=== PATIENT | male | born 1970 | race Caucasian/White ===

== ENCOUNTER 2020-05-18 13:12 | Inpatient (IN) ==
[2020-05-18 13:24] VITALS: BMI 42.3
--- NOTE | 2020-05-18 14:15 | DR.URIAD ---
HPI Time Seen Time Seen by Provider: 05/18/20 13:20 Complaint Chief Complaint Doctors Comments: CC General malaise HPI Pt with several days of worsening body aches general malaise has an ulcer in the pad of his right big toe wonders if it is infected PMH PMH Past Medical History: Diabetes and Hypertension Past Surgical History: Yes Surgical History: Tonsillectomy Family History Family Medical History: Diabetes Mellitus and Cancer Social History Do you use any recreational Drugs:: No ROS Review of Systems Constitutional: Diaphoresis, Fever, Malaise, Weakness and Fatigue Eyes: No Symptoms Reported ENTM: No Symptoms Reported Respiratoy: No Symptoms Reported Cardiovascular: No Symptoms Reported Gastrointestinal/Abdominal: No Symptoms Reported Genitourinary: No Symptoms Reported Neurological: No Symptoms Reported Musculoskeletal: See HPI Integumentary: See HPI Hematologic/Lymphatic: No Symptoms Reported Endocrine: No Symptoms Reported Psychiatric: No Symptoms Reported All Other Systems: Reviewed and Negative PE Vital Signs Vitals: Temperature 99.6 F Pulse Rate 89 Respiratory Rate 20 Blood Pressure [Left Arm] 105/58 Blood Pressure 115/63 O2 Sat by Pulse Oximetry 93 General Limitations: No Limitations General Appearance: Alert (pt appears acutely ill ) and Lethargic Head Head Exam: Normal Inspection, Atraumatic and Normocephalic Eyes Eye exam: Normal Appearance, PERRL and EOMI; negative Scleral Icterus and Conjunctival Injection ENT ENT Exam: Normal Exam, Normal Oropharynx and Mucous Membranes Moist Mouth Exam: Normal Inspection; negative Drooling, Lip Swelling and Tongue Elevation Throat Exam: Normal Inspection; negative Tonsillar Erythema, Tonsillomegaly, Tonsillar Exudate, R Peritonsillar Mass and L Peritonsillar Mass Neck Neck Exam: Normal Inspection, Full ROM and Trachea Midline; negative Tenderness, Meningismus and Lymphadenopathy Chest Chest Inspection: Normal Inspection and Symmetric Chest Wall Rise; negative Tenderness Respiratory Respiratory Exam: Normal Lung Sounds Bilat; negative Accessory Muscle Use and Chest Wall Tenderness Respiratory Exam: Bilateral: Clear to Auscultation Cardiovascular Cardiovascular Exam: Regular Rate, Normal Rhythm, Systolic Murmur and Diastolic Murmur; negative Normal Heart Sounds Abdominal Exam Abdominal Exam: Normal Inspection and Normal Bowel Sounds; negative Soft, Distention, Tenderness and Guarding Extremeties Extremities Exam: Normal Inspection and Full ROM; negative Tenderness Back Back Exam: Normal Inspection and Full ROM; negative Tenderness Neurologic Neurological Exam: Alert, Oriented X3 and Normal Gait Psychiatric Psychiatric Exam: Normal Affect and Normal Mood Skin Skin Exam: Other (there is an ulcer in the pad of the right big toe with increasec caloric) MDM Differential Diagnosis Differential Diagnosis: Influenza A, Influenza B, Pneumonia (diabetic foot ulce r, Sepsis) and URI COURSE Consultation Consultation Comments: Dr Zepeda admitted 1705 ROR Labs Reviewed Laboratory Results Reviewed?: Yes Result Diagrams: 05/18/20 14:26 05/18/20 14:26 Laboratory: WBC 13.8 X10^3/uL (3.6-10.0) H 05/18/20 14:26 RBC 5.22 X10^6/uL (4.7-6.0) 05/18/20 14:26 Hgb 13.9 g/dL (13.5-18.0) 05/18/20 14:26 Hct 42.7 % (42.0-54.0) 05/18/20 14:26 MCV 82.0 fL (80.0-100.0) 05/18/20 14:26 MCH 26.7 pg (27.0-34.0) L 05/18/20 14:26 MCHC 32.6 g/dL (33.0-35.0) L 05/18/20 14:26 RDW 17.9 % (11.6-16.5) H 05/18/20 14:26 Plt Count 137 X10^3/uL (150.0-450.0) L 05/18/20 14:26 MPV 9.1 fL (7.4-11.0) 05/18/20 14:26 Neut % (Auto) 86.8 % (42.0-75.0) H 05/18/20 14:26 Lymph % (Auto) 3.4 % (21.0-51.0) L 05/18/20 14:26 [place] % (Auto) 8.8 % (0.0-13.0) 05/18/20 14:26 Eos % (Auto) 0.8 % (0.9-2.9) L 05/18/20 14:26 Baso % (Auto) 0.2 % (0.2-1.0) 05/18/20 14:26 Neut # (Auto) 12.0 x10^3/uL (2.2-4.8) H 05/18/20 14:26 Lymph # (Auto) 0.5 X10^3/uL (1.3-2.9) L 05/18/20 14:26 [place] # (Auto) 1.2 x10^3/uL (0.3-0.8) H 05/18/20 14:26 Eos # (Auto) 0.1 x10^3/uL (0.0-0.2) 05/18/20 14:26 Baso # (Auto) 0.0 X10^3/uL (0.0-0.1) 05/18/20 14:26 Absolute Nucleated RBC 0.0 /100WBC 05/18/20 14:26 PT 26.4 SECONDS (11.8-14.3) 05/18/20 14:26 INR Target Range - 05/18/20 14:26 INR 2.52 (0.8-1.3) H 05/18/20 14:26 APTT 33.0 SECONDS (22.9-36.5) 05/18/20 14:26 PTT Comment - 05/18/20 14:26 Sodium 138 mmol/L (136-145) 05/18/20 14:26 Corrected Sodium 142 mmol/L (136-145) 05/18/20 14:26 Potassium 4.7 mmol/L (3.5-5.1) 05/18/20 14:26 Chloride 102 mmol/L (98-107) 05/18/20 14:26 Carbon Dioxide 30.9 mmol/L (21-32) 05/18/20 14:26 BUN 26 mg/dL (7-18) H 05/18/20 14:26 Creatinine 0.89 mg/dL (0.70-1.30) 05/18/20 14:26 Est GFR (MDRD) Af Amer > 60 (>60) 05/18/20 14:26 Est GFR (MDRD) Non-Af > 60 (>60) 05/18/20 14:26 Glucose 257 mg/dL (65-99) H 05/18/20 14:26 Lactic Acid 1.9 mmol/L (0.4-2.0) 05/18/20 14:33 Calcium 9.5 mg/dL (8.5-10.1) 05/18/20 14:26 Corrected Calcium TNP 05/18/20 14:26 Total Bilirubin 0.60 mg/dL (0.2-1.0) 05/18/20 14:26 AST 39 Units/L (15-37) H 05/18/20 14:26 ALT 31 Units/L (12-78) 05/18/20 14:26 Alkaline Phosphatase 98 Units/L (46-116) 05/18/20 14:26 Total Protein 8.4 g/dL (6.4-8.2) H 05/18/20 14:26 Albumin 3.6 g/dL (3.4-5.0) 05/18/20 14:26 Globulin 4.8 g/dL (2.5-4.5) H 05/18/20 14:26 Albumin/Globulin Ratio 0.8 Ratio (1.1-2.1) L 05/18/20 14:26 Specimen Type Random urine 05/18/20 14:53 Urine Color Yellow (YELLOW) 05/18/20 14:53 Urine Appearance Clear (CLEAR) 05/18/20 14:53 Urine pH 5.0 (5.0 - 8.0) 05/18/20 14:53 Ur Specific [place] 1.010 (1.000-1.030) 05/18/20 14:53 Urine Protein Negative (NEGATIVE) 05/18/20 14:53 Urine Glucose (UA) 4+ (NEGATIVE) 05/18/20 14:53 Urine Ketones Negative (NEGATIVE) 05/18/20 14:53 Urine Occult Blood Negative (NEGATIVE) 05/18/20 14:53 Urine Nitrite Negative (NEGATIVE) 05/18/20 14:53 Urine Bilirubin Negative (NEGATIVE) 05/18/20 14:53 Urine Urobilinogen Normal (NORMAL) 05/18/20 14:53 Ur Leukocyte Esterase Negative (NEGATIVE) 05/18/20 14:53 Influenza Type A (PCR) Negative (NEGATIVE) 05/18/20 14:17 Influenza Type B (PCR) Negative (NEGATIVE) 05/18/20 14:17 SARS-CoV-2 (PCR) Negative (NEGATIVE) 05/18/20 14:17 SARS-CoV-2 IgG Ab Cancelled 05/18/20 14:26 SARS-CoV-2 IgG (LYNN) 1 Cancelled 05/18/20 14:26 S. pyogenes (TEM-PCR) Not detected (NOT DETECT) 05/18/20 14:17 XRAY X-ray Results: of foot no osteo chest xr wnl Opioid Opioid Risk Tool Age (Wilian box if 16-45): No History of Preadolescent Sexual Abuse: No Total: 0 Total Score Risk Category: Low Risk Copyright: [facility] predicting aberrant behaviors Diagnosis Discharge Problem: Cellulitis in diabetic foot, Leukocytosis Diabetic foot ulcer Qualifiers: Diabetic foot ulcer location: toe Diabetes mellitus type: type 2 Laterality: right Non-pressure ulcer stage: with fat layer exposed Qualified Code(s): E11.621 - Type 2 diabetes mellitus with foot ulcer
--- NOTE | 2020-05-18 14:39 | RAD ---
HISTORYUlcer 1st toeSTUDYRight foot three viewsCOMPARISONNoneFINDINGSThere is marked soft tissue swelling of the 1st toe. A lucency is noted in the soft tissues adjacent to the distal phalanx. No fracture or bone destruction or foreign body is seen. Soft tissue swelling is nonspecific. There is hyperextension of the toes at the MTP joints. There is a conical tapered erosive deformity of the distal 5th metatarsal.IMPRESSIONSoft tissue swelling 1st toe with a air or gas in the soft tissues consistent with ulcer/infection. No osteomyelitis seen. Nonacute deformity distal 5th metatarsal may be related to previous surgery or chronic inflammatory erosion.Electronically signed by: JOHANNA AMADOR (May 18, 2020 14:37:09)
[2020-05-18 14:47] LABS: BASOPHILS % (AUTO) 0.2 % (0.2-1.0); EOSINOPHILS # (AUTO) 0.1 x10^3/uL (0.0-0.2); EOSINOPHILS % (AUTO) 0.8 % (0.9-2.9); HEMATOCRIT 42.7 % (42.0-54.0); HEMOGLOBIN 13.9 g/dL (13.5-18.0); LYMPHOCYTES # (AUTO) 0.5 X10^3/uL (1.3-2.9); LYMPHOCYTES % (AUTO) 3.4 % (21.0-51.0); MEAN CORPUSCULAR HEMOGLOBIN 26.7 pg (27.0-34.0); MEAN CORPUSCULAR HGB CONC 32.6 g/dL (33.0-35.0); MEAN PLATELET VOLUME 9.1 fL (7.4-11.0); MONOCYTES # (AUTO) 1.2 x10^3/uL (0.3-0.8); MONOCYTES % (AUTO) 8.8 % (0.0-13.0); NEUTROPHILS % (AUTO) 86.8 % (42.0-75.0); PLATELET COUNT 137 X10^3/uL (150.0-450.0); RED BLOOD COUNT 5.22 X10^6/uL (4.7-6.0); RED CELL DISTRIBUTION WIDTH 17.9 % (11.6-16.5); WHITE BLOOD COUNT 13.8 X10^3/uL (3.6-10.0)
[2020-05-18 14:59] LABS: ALANINE AMINOTRANSFERASE 31 Units/L (12-78); ALBUMIN 3.6 g/dL (3.4-5.0); ALKALINE PHOSPHATASE 98 Units/L (46-116); ASPARTATE AMINO TRANSFERASE 39 Units/L (15-37); BLOOD UREA NITROGEN 26 mg/dL (7-18); CALCIUM 9.5 mg/dL (8.5-10.1); CARBON DIOXIDE 30.9 mmol/L (21-32); CHLORIDE 102 mmol/L (98-107); COR NA(FOR HYPERGLY) 142 mmol/L (136-145); CREATININE 0.89 mg/dL (0.70-1.30); SODIUM 138 mmol/L (136-145); TOTAL PROTEIN 8.4 g/dL (6.4-8.2); eGFR NON BLACK RACES > 60 (>60)
[2020-05-18 15:15] LABS: BILIRUBIN,URINE NEGATIVE (NEGATIVE); BLOOD/HEMOGLOBIN,URINE NEGATIVE (NEGATIVE); GLUCOSE, URINE 4+ (NEGATIVE); KETONES,URINE NEGATIVE (NEGATIVE); LEUKOCYTE ESTERASE ,URINE NEGATIVE (NEGATIVE); NITRITES,URINE NEGATIVE (NEGATIVE); PROTEIN,URINE NEGATIVE (NEGATIVE); UROBILINOGEN,URINE NORMAL (NORMAL)
[2020-05-18 15:20] LABS: APPEARANCE,URINE CLEAR (CLEAR); COLOR,URINE YELLOW (YELLOW)
[2020-05-18] MEDS ORDERED: VANCOMYCIN IV *PREMIX 1 G/200 ML BAG 1 G/200 ML PIGGYBACK IV ONE (15:32)
[2020-05-18 15:35] LABS: STREP A BY PCR NOT DETECTED (NOT DETECT)
--- NOTE | 2020-05-18 15:35 | RAD ---
Chest AP portableIndication: Chills and body aches. SepsisFINDINGSThere is no pneumothorax or effusion. There is no dense consolidation. Heart size is enlarged with sternotomy change noted.IMPRESSIONCardiomegaly without other acute chest processElectronically signed by: VIVEK SCHAFER (May 18, 2020 15:32:43)
[2020-05-18] MEDS ORDERED: MERREM VIAL IVP ONE (15:37)
[2020-05-18 16:04] LABS: COVID 19 PCR NEGATIVE (NEGATIVE)
[2020-05-18] MEDS ORDERED: VANCOMYCIN HCL ONE (16:05)
[2020-05-18] MEDS ORDERED: NS 250 ML IV 250 ML IV ONE ×2 (16:05→18:12)
[2020-05-18] MEDS ORDERED: HumuLIN R SUBCUT PRN (17:19)
[2020-05-18] MEDS ORDERED: MERREM VIAL ONE (17:38)
[2020-05-18] MEDS ORDERED: NS 50 ML IV + SPIKE MINIBAG* 50 ML IV ONE (17:38)
[2020-05-18] MEDS ORDERED: NORCO 7.5/325 MG TAB PO PRN (18:07)
[2020-05-18] MEDS ORDERED: NORCO 7.5/325 MG TAB ONE (18:11)
[2020-05-18] MEDS ORDERED: NS 250 ML IV 250 ML IV SCH (18:30)
[2020-05-18] MEDS ORDERED: [UNRECOGNIZED DRUG - OTHER] PO PRN (19:07)
[2020-05-18] MEDS ORDERED: CATAPRES-TTS-2 TD SCH (19:07)
[2020-05-18] MEDS ORDERED: GLUCOPHAGE PO SCH (20:00)
[2020-05-18] MEDS ORDERED: SNACK - Diabetic Appropriate PO SCH (20:00)
[2020-05-18] MEDS: SNACK - Diabetic Appropriate PO SCH (20:50)
[2020-05-18] MEDS: JANUVIA PO SCH (20:50)
[2020-05-18] MEDS: NEURONTIN CAP 300 MG PO SCH (21:05)
[2020-05-18] MEDS ORDERED: MERREM VIAL 500 MG in NS 50 ML IV + SPIKE MINIBAG* 50 ML IV SCH (22:00)
[2020-05-18] MEDS ORDERED: MERREM VIAL IVP SCH (22:00)
[2020-05-19] MEDS: NEURONTIN CAP 300 MG PO SCH (05:25)
[2020-05-19 05:43] LABS: BASOPHILS % (AUTO) 0.4 % (0.2-1.0); EOSINOPHILS # (AUTO) 0.1 x10^3/uL (0.0-0.2); EOSINOPHILS % (AUTO) 0.6 % (0.9-2.9); HEMATOCRIT 39.1 % (42.0-54.0); HEMOGLOBIN 12.9 g/dL (13.5-18.0); LYMPHOCYTES # (AUTO) 0.9 X10^3/uL (1.3-2.9); LYMPHOCYTES % (AUTO) 9.5 % (21.0-51.0); MEAN CORPUSCULAR HEMOGLOBIN 26.9 pg (27.0-34.0); MEAN CORPUSCULAR HGB CONC 32.9 g/dL (33.0-35.0); MEAN CORPUSCULAR VOLUME 81.8 fL (80.0-100.0); MEAN PLATELET VOLUME 9.6 fL (7.4-11.0); MONOCYTES # (AUTO) 0.9 x10^3/uL (0.3-0.8); MONOCYTES % (AUTO) 10.4 % (0.0-13.0); NEUTROPHILS # (AUTO) 7.1 x10^3/uL (2.2-4.8); NEUTROPHILS % (AUTO) 79.1 % (42.0-75.0); PLATELET COUNT 129 X10^3/uL (150.0-450.0); RED BLOOD COUNT 4.78 X10^6/uL (4.7-6.0); RED CELL DISTRIBUTION WIDTH 17.8 % (11.6-16.5)
[2020-05-19 05:58] LABS: ALANINE AMINOTRANSFERASE 25 Units/L (12-78); ALBUMIN 3.1 g/dL (3.4-5.0); ALKALINE PHOSPHATASE 84 Units/L (46-116); ASPARTATE AMINO TRANSFERASE 26 Units/L (15-37); BLOOD UREA NITROGEN 21 mg/dL (7-18); CALCIUM 8.9 mg/dL (8.5-10.1); CARBON DIOXIDE 26.8 mmol/L (21-32); CHLORIDE 104 mmol/L (98-107); COR CA(FOR HYPOALB) 9.6 mg/dL (8.5-10.1); CREATININE 0.67 mg/dL (0.70-1.30); SODIUM 139 mmol/L (136-145); TOTAL PROTEIN 7.4 g/dL (6.4-8.2); eGFR NON BLACK RACES > 60 (>60)
[2020-05-19] MEDS: JANUVIA PO SCH ×2 (06:00→16:17)
[2020-05-19] MEDS ORDERED: MICRO K EXTEN CAP 10 MEQ PO SCH (09:00)
[2020-05-19] MEDS ORDERED: LASIX PO SCH (09:00)
[2020-05-19] MEDS ORDERED: VITAMIN C PO SCH (09:00)
[2020-05-19] MEDS ORDERED: MAXZIDE 75/50 MG PO SCH (09:00)
[2020-05-19] MEDS ORDERED: ZOCOR TAB 20 MG PO SCH (09:00)
[2020-05-19] MEDS ORDERED: AMARYL TAB 4 MG PO SCH (09:00)
[2020-05-19] MEDS ORDERED: REQUIP PO SCH (09:00)
[2020-05-19] MEDS: DEMADEX PO SCH (09:17)
[2020-05-19] MEDS: PROTONIX TAB 40 MG PO SCH (09:17)
[2020-05-19] MEDS: ALDACTONE TAB 25 MG PO SCH (09:17)
[2020-05-19] MEDS: REQUIP PO SCH ×2 (09:17→20:42)
[2020-05-19] MEDS: SENOKOT PO SCH ×2 (09:17→20:42)
[2020-05-19] MEDS: VITAMIN C PO SCH (09:18)
[2020-05-19] MEDS: VITAMIN D3 125 mcg (5,000 UNITS) PO SCH (09:18)
[2020-05-19] MEDS: ZOSYN VIAL 3.375 GRAMS 3.375 G in NS 100 ML IV + SPIKE MINIBAG* 100 ML IV SCH ×3 (09:18→21:33)
[2020-05-19] MEDS: VITAMIN B-1 PO SCH (09:18)
[2020-05-19] MEDS: GENTAMICIN TOPICAL OINT TOP SCH ×2 (10:16→20:41)
--- NOTE | 2020-05-19 11:03 | PCM.PROG ---
Progress Note - Progress Note for Day of Date of Exam: 05/18/20 - Subjective Subjective: IS A 49 YEAR OLD PATIENT OF OURS. HE PRESENTED TO THE ER WITH COMPLAINTS OF FEVER, GENERALIZED WEAKNESS, BODY ACHES, AND AN INFECTED DIABETIC ULCER TO THE RIGHT GREAT TOE. HE ALSO REPORTS LOWER BACK PAIN AND HEADACHE THAT STARTED EARLIER IN THE DAY. ON EXAMINATION, A [id number] OPEN WOUND IS NOTED TO THE BOTTOM OF THE RIGHT GREAT TOE. THERE IS REDNESS OF THE GREAT TOE NOTED. NO DRAINAGE NOTED. PMH INCLUDES: HTN, DM TYPE 1, ANEMIA, TONSILLECTOMY, AORTA GRAFT, AND VALVE REPLACEMENT X 2. ON ARRIVAL, VITALS WERE 99.6-90-20-97%-117/60. LABS WERE OBTAINED. ABNORMAL LAB VALUES INCLUDE THE FOLLOWING: WBC 13.8, PLT COUNT 137, INR 2.52, BUN 26, GLUCOSE 257, AST 39, TOTAL PROTEIN 8.4, GLOBULIN 4.8. URINALYSIS IS UNREMARKABLE. COVID-19, INFLUENZA, AND STREP ARE NEGATIVE. BLOOD CULTURES AND A WOUND CULTURE WERE SET UP. GRAM STAIN IS POSITIVE FOR GRAM POSITIVE COCCI AND GRAM NEGATIVE RODS. A RIGHT FOOT XRAY WAS OBTAINED AND REVEALED: Soft tissue swelling 1st toe with an air or gas in the soft tissues consistent with ulcer/infection. No osteomyelitis seen. Non- acute deformity distal 5th metatarsal may be related to previous surgery or chronic inflammatory erosion. A CHEST XRAY WAS OBTAINED AND REVEALED: Cardiomegaly without other acute chest process. HE WAS GIVEN VANCOMYCIN 1G IV X 1, MERREM 500MG IV X 1 IN THE ER. HE WAS ADMITTED FOR FURTHER EVALUATION AND TREATMENT OF CELLULITIS OF THE RIGHT GREAT TOE, DIABETIC FOOT ULCER TO RIGHT GREAT TOE, AND LEUKOCYTOSIS. HE WAS STARTED ON ZOSYN 3.375G IV TID, VANCOMYCIN DAILY, GENTAMICIN OINTMENT TO WOUND BID, HUMULIN R SLIDING SCALE, AND HIS HOME MEDICATIONS WERE RESUMED. WE PLAN TO OBTAIN A LOWER EXTREMITY CTA. OTHERWISE, WE WILL FOLLOW UP WITH AM LABS AND CONTINUE TO MONITOR. - Past Medical Family Social History Past Med/Fam/Surg Hx: No changes since H&P Allergies: Allergies No Known Drug Allergies Allergy (Verified 05/18/20 13:20) - Review of Systems ROS: No change since H&P - Vital Signs and I&O's Vital Signs: Temperature 98.2 F Pulse Rate [Left Brachial] 78 Pulse Rate 89 Respiratory Rate 18 Blood Pressure [Left Arm] 107/67 Blood Pressure 112/56 O2 Sat by Pulse Oximetry 93 Intake and Output: Intake & Output 05/16/20 05/17/20 05/18/20 05/19/20 11:59 11:59 11:59 11:59 Intake Total 1330 / 1330 Output Total 1500 / 1500 Balance -170 / -170 - Physical Exam Oriented: Normal Eyes: Normal Ear: Normal Nose: Normal Throat: Normal Respiratory: Diminished Cardiovascular: Normal : Normal Auscultation: Bowel Sounds: Normal Palpation: Normal Tenderness: Normal Skin: Wound (RIGHT GREAT TOE 1X1 CM OPEN WOUND ) Musculoskeletal: Normal Psychiatric: Normal Mood Description: Calm Affect: Normal Speech Pattern: Clear, Appropriate - Laboratory and Diagnostics Result Diagrams: 05/19/20 04:25 05/19/20 04:25 Labs: 05/18/20 17:05 Toe - Right Big Gram Stain - Final 05/18/20 17:05 Toe - Right Big Wound Culture - Preliminary Laboratory WBC 9.0 X10^3/uL (3.6-10.0) 05/19/20 04:25 RBC 4.78 X10^6/uL (4.7-6.0) 05/19/20 04:25 Hgb 12.9 g/dL (13.5-18.0) L 05/19/20 04:25 Hct 39.1 % (42.0-54.0) L 05/19/20 04:25 MCV 81.8 fL (80.0-100.0) 05/19/20 04:25 MCH 26.9 pg (27.0-34.0) L 05/19/20 04:25 MCHC 32.9 g/dL (33.0-35.0) L 05/19/20 04:25 RDW 17.8 % (11.6-16.5) H 05/19/20 04:25 Plt Count 129 X10^3/uL (150.0-450.0) L 05/19/20 04:25 MPV 9.6 fL (7.4-11.0) 05/19/20 04:25 Neut % (Auto) 79.1 % (42.0-75.0) H 05/19/20 04:25 Lymph % (Auto) 9.5 % (21.0-51.0) L 05/19/20 04:25 [place] % (Auto) 10.4 % (0.0-13.0) 05/19/20 04:25 Eos % (Auto) 0.6 % (0.9-2.9) L 05/19/20 04:25 Baso % (Auto) 0.4 % (0.2-1.0) 05/19/20 04:25 Neut # (Auto) 7.1 x10^3/uL (2.2-4.8) H 05/19/20 04:25 Lymph # (Auto) 0.9 X10^3/uL (1.3-2.9) L 05/19/20 04:25 [place] # (Auto) 0.9 x10^3/uL (0.3-0.8) H 05/19/20 04:25 Eos # (Auto) 0.1 x10^3/uL (0.0-0.2) 05/19/20 04:25 Baso # (Auto) 0.0 X10^3/uL (0.0-0.1) 05/19/20 04:25 Absolute Nucleated RBC 0.0 /100WBC 05/19/20 04:25 PT 26.4 SECONDS (11.8-14.3) 05/18/20 14:26 INR Target Range - 05/18/20 14:26 INR 2.52 (0.8-1.3) H 05/18/20 14:26 APTT 33.0 SECONDS (22.9-36.5) 05/18/20 14:26 PTT Comment - 05/18/20 14:26 Sodium 139 mmol/L (136-145) 05/19/20 04:25 Corrected Sodium TNP 05/19/20 04:25 Potassium 3.9 mmol/L (3.5-5.1) 05/19/20 04:25 Chloride 104 mmol/L (98-107) 05/19/20 04:25 Carbon Dioxide 26.8 mmol/L (21-32) 05/19/20 04:25 BUN 21 mg/dL (7-18) H 05/19/20 04:25 Creatinine 0.67 mg/dL (0.70-1.30) L 05/19/20 04:25 Est GFR (MDRD) Af Amer > 60 (>60) 05/19/20 04:25 Est GFR (MDRD) Non-Af > 60 (>60) 05/19/20 04:25 Glucose 110 mg/dL (65-99) H 05/19/20 04:25 POC Glucose (mg/dL) 127 mg/dL (65-99) H 05/19/20 05:32 Lactic Acid 1.9 mmol/L (0.4-2.0) 05/18/20 14:33 Calcium 8.9 mg/dL (8.5-10.1) 05/19/20 04:25 Corrected Calcium 9.6 mg/dL (8.5-10.1) 05/19/20 04:25 Total Bilirubin 0.90 mg/dL (0.2-1.0) 05/19/20 04:25 AST 26 Units/L (15-37) 05/19/20 04:25 ALT 25 Units/L (12-78) 05/19/20 04:25 Alkaline Phosphatase 84 Units/L (46-116) 05/19/20 04:25 Total Protein 7.4 g/dL (6.4-8.2) 05/19/20 04:25 Albumin 3.1 g/dL (3.4-5.0) L 05/19/20 04:25 Globulin 4.3 g/dL (2.5-4.5) 05/19/20 04:25 Albumin/Globulin Ratio 0.7 Ratio (1.1-2.1) L 05/19/20 04:25 Specimen Type Random urine 05/18/20 14:53 Urine Color Yellow (YELLOW) 05/18/20 14:53 Urine Appearance Clear (CLEAR) 05/18/20 14:53 Urine pH 5.0 (5.0 - 8.0) 05/18/20 14:53 Ur Specific [place] 1.010 (1.000-1.030) 05/18/20 14:53 Urine Protein Negative (NEGATIVE) 05/18/20 14:53 Urine Glucose (UA) 4+ (NEGATIVE) 05/18/20 14:53 Urine Ketones Negative (NEGATIVE) 05/18/20 14:53 Urine Occult Blood Negative (NEGATIVE) 05/18/20 14:53 Urine Nitrite Negative (NEGATIVE) 05/18/20 14:53 Urine Bilirubin Negative (NEGATIVE) 05/18/20 14:53 Urine Urobilinogen Normal (NORMAL) 05/18/20 14:53 Ur Leukocyte Esterase Negative (NEGATIVE) 05/18/20 14:53 Influenza Type A (PCR) Negative (NEGATIVE) 05/18/20 14:17 Influenza Type B (PCR) Negative (NEGATIVE) 05/18/20 14:17 SARS-CoV-2 (PCR) Negative (NEGATIVE) 05/18/20 14:17 SARS-CoV-2 IgG Ab Cancelled 05/18/20 14:26 SARS-CoV-2 IgG (LYNN) 1 Cancelled 05/18/20 14:26 S. pyogenes (TEM-PCR) Not detected (NOT DETECT) 05/18/20 14:17 - Plan (1) Cellulitis in diabetic foot Status: Acute Plan: ZOSYN 3.375G IV TID, VANCOMYCIN DAILY, GENTAMICIN OINTMENT TO WOUND BID, HUMULIN R SLIDING SCALE, AND HIS HOME MEDICATIONS WERE RESUMED (2) Diabetic foot ulcer Status: Acute Qualifiers: Diabetic foot ulcer location: toe Diabetes mellitus type: type 2 Laterality: right Non-pressure ulcer stage: with fat layer exposed Qualified Code(s): E11.621 - Type 2 diabetes mellitus with foot ulcer; L97.512 - Non- pressure chronic ulcer of other part of right foot with fat layer exposed (3) Leukocytosis Status: Acute Qualifiers: Leukocytosis type: unspecified Qualified Code(s): D72.829 - Elevated white blood cell count, unspecified
--- NOTE | 2020-05-19 16:29 | CT ---
HISTORYLOWER EXTREMITY WOUNDS (ATTN: RIGHT) CHECK FLOW history of type 2 diabetes, hypertension, and open heart surgery.STUDYLOW EXT CTA W W/O CONCOMPARISONNoneTECHNIQUEMultiple CT axial images of the lower extremities were obtained before and after using IV contrast. 3D reconstructions utilizing axial MIPS imaging was performed and reviewed. Dose reduction techniques including Automated Exposure Control (AEC) and adjustment of mA and kV were utilized.Stenoses are measured using NASCET criteria.FINDINGSImages were obtained from the distal aorta to the toes.Without contrast: Vascular calcifications are present compatible with atherosclerosis. Medium level density in the gallbladder could be partially calcified stones or sludge.With contrast: Aorta has a normal caliber with no aneurysm, dissection, or stenosis. Renal arteries are patent with no stenosis. Inferior mesenteric artery is patent.Left and right common iliac artery only have minimal disease and are widely patent. External iliac iliac arteries are patent with no stenosis. Internal iliac arteries are patent also.Right leg: There is no significant femoropopliteal artery disease or stenosis. Popliteal artery is patent and gives rise to all 3 vessels at the trifurcation in the proximal calf. Anterior tibial and posterior tibial arteries extend into the foot. The peroneal artery to the distal calfLeft leg: No significant femoropopliteal artery disease or stenosis. All 3 trifurcation vessels are patent in the proximal calf. Anterior tibial and posterior tibial arteries extend well into the foot. Peroneal artery to the distal calf.Body: No inflammation around the gallbladder. No hydronephrosis. No mass or significant lymphadenopathy. Umbilical hernia contains fat. The defect in the abdominal wall only measures about 2 cm but the fat which protrudes into the subcutaneous tissue measures about 5 cm. Small bilateral inguinal hernias contain fat, right side larger than left.Multiple varicosities are seen in the subcutaneous tissue of both lower extremities from venous insufficiencyThere is edema in the subcutaneous tissue of the right leg. This is most severe in the foot and in the posterior mid calf. No evidence for abscess.IMPRESSION1. No significant inflow or outflow vascular disease2. Numerous large bilateral subcutaneous varicosities3. Possible cholelithiasis4. Umbilical hernia containing fatElectronically signed by: Reji Lau (May 19, 2020 16:27:15)
[2020-05-19] MEDS: SNACK - Diabetic Appropriate PO SCH (20:40)
[2020-05-19] MEDS: LANTUS SC SCH (20:41)
[2020-05-19] MEDS: CRESTOR TAB 10 MG PO SCH (20:41)
[2020-05-19] MEDS: CYMBALTA PO SCH (20:41)
[2020-05-20 05:14] LABS: BASOPHILS % (AUTO) 0.7 % (0.2-1.0); EOSINOPHILS # (AUTO) 0.2 x10^3/uL (0.0-0.2); EOSINOPHILS % (AUTO) 3.4 % (0.9-2.9); HEMATOCRIT 41.8 % (42.0-54.0); HEMOGLOBIN 13.6 g/dL (13.5-18.0); LYMPHOCYTES % (AUTO) 17.8 % (21.0-51.0); MEAN CORPUSCULAR HEMOGLOBIN 26.7 pg (27.0-34.0); MEAN CORPUSCULAR HGB CONC 32.6 g/dL (33.0-35.0); MEAN CORPUSCULAR VOLUME 81.9 fL (80.0-100.0); MEAN PLATELET VOLUME 9.9 fL (7.4-11.0); MONOCYTES # (AUTO) 0.8 x10^3/uL (0.3-0.8); MONOCYTES % (AUTO) 14.5 % (0.0-13.0); NEUTROPHILS # (AUTO) 3.6 x10^3/uL (2.2-4.8); NEUTROPHILS % (AUTO) 63.6 % (42.0-75.0); PLATELET COUNT 141 X10^3/uL (150.0-450.0); RED CELL DISTRIBUTION WIDTH 17.4 % (11.6-16.5); WHITE BLOOD COUNT 5.6 X10^3/uL (3.6-10.0)
[2020-05-20 05:24] LABS: ALANINE AMINOTRANSFERASE 25 Units/L (12-78); ALBUMIN 3.2 g/dL (3.4-5.0); ALKALINE PHOSPHATASE 81 Units/L (46-116); ASPARTATE AMINO TRANSFERASE 34 Units/L (15-37); BLOOD UREA NITROGEN 20 mg/dL (7-18); CALCIUM 9.2 mg/dL (8.5-10.1); CARBON DIOXIDE 26.7 mmol/L (21-32); CHLORIDE 102 mmol/L (98-107); COR CA(FOR HYPOALB) 9.8 mg/dL (8.5-10.1); COR NA(FOR HYPERGLY) 140 mmol/L (136-145); CREATININE 0.85 mg/dL (0.70-1.30); SODIUM 139 mmol/L (136-145); TOTAL PROTEIN 7.9 g/dL (6.4-8.2); eGFR NON BLACK RACES > 60 (>60)
[2020-05-20] MEDS: ZOSYN VIAL 3.375 GRAMS 3.375 G in NS 100 ML IV + SPIKE MINIBAG* 100 ML IV SCH ×3 (05:26→21:01)
[2020-05-20] MEDS: JANUVIA PO SCH ×2 (06:00→16:53)
[2020-05-20] MEDS: ALDACTONE TAB 25 MG PO SCH (08:25)
[2020-05-20] MEDS: REQUIP PO SCH ×2 (08:26→20:59)
[2020-05-20] MEDS: DEMADEX PO SCH (08:26)
[2020-05-20] MEDS: PROTONIX TAB 40 MG PO SCH (08:26)
[2020-05-20] MEDS: GENTAMICIN TOPICAL OINT TOP SCH ×2 (08:26→21:00)
[2020-05-20] MEDS: SENOKOT PO SCH ×2 (08:26→20:59)
[2020-05-20] MEDS: VITAMIN C PO SCH (08:27)
[2020-05-20] MEDS: VITAMIN B-1 PO SCH (08:27)
[2020-05-20] MEDS: VITAMIN D3 125 mcg (5,000 UNITS) PO SCH (08:27)
--- NOTE | 2020-05-20 08:58 | DR.H&P ---
H&P - History & Physical for Day of: H&P Date: 05/18/20 - Chief Complaint Chief Complaint: FEVER, WEAKNESS, BODY ACHES, DIABETIC ULCER RIGHT GREAT TOE - History of Present Illness History of Present Illness: IS A 49 YEAR OLD PATIENT OF OURS. HE PRESENTED TO THE ER WITH COMPLAINTS OF FEVER, GENERALIZED WEAKNESS, BODY ACHES, AND AN INFECTED DIABETIC ULCER TO THE RIGHT GREAT TOE. HE ALSO REPORTS LOWER BACK PAIN AND HEADACHE THAT STARTED EARLIER IN THE DAY. ON EXAMINATION, A [id number] OPEN WOUND IS NOTED TO THE BOTTOM OF THE RIGHT GREAT TOE. THERE IS REDNESS OF THE GREAT TOE NOTED. NO DRAINAGE NOTED. PMH INCLUDES: HTN, DM TYPE 1, ANEMIA, TONSILLECTOMY, AORTA GRAFT, AND VALVE REPLACEMENT X 2. ON ARRIVAL, VITALS WERE 99.6-90-20-97%-117/60. LABS WERE OBTAINED. ABNORMAL LAB VALUES INCLUDE THE FOLLOWING: WBC 13.8, PLT COUNT 137, INR 2.52, BUN 26, GLUCOSE 257, AST 39, TOTAL PROTEIN 8.4, GLOBULIN 4.8. URINALYSIS IS UNREMARKABLE. COVID-19, INFLUENZA, AND STREP ARE NEGATIVE. BLOOD CULTURES AND A WOUND CULTURE WERE SET UP. GRAM STAIN IS POSITIVE FOR GRAM POSITIVE COCCI AND GRAM NEGATIVE RODS. A RIGHT FOOT XRAY WAS OBTAINED AND REVEALED: Soft tissue swelling 1st toe with an air or gas in the soft tissues consistent with ulcer/infection. No osteomyelitis seen. Non-acute deformity distal 5th metatarsal may be related to previous surgery or chronic inflammatory erosion. A CHEST XRAY WAS OBTAINED AND REVEALED: Cardiomegaly without other acute chest process. HE WAS GIVEN VANCOMYCIN 1G IV X 1, MERREM 500MG IV X 1 IN THE ER. HE WAS ADMITTED FOR FURTHER EVALUATION AND TREATMENT OF CELLULITIS OF THE RIGHT GREAT TOE, DIABETIC FOOT ULCER TO RIGHT GREAT TOE, AND LEUKOCYTOSIS. HE WAS STARTED ON ZOSYN 3.375G IV TID, VANCOMYCIN DAILY, GENTAMICIN OINTMENT TO WOUND BID, HUMULIN R SLIDING SCALE, AND HIS HOME MEDICATIONS WERE RESUMED. WE PLAN TO OBTAIN A LOWER EXTREMITY CTA. OTHERWISE, WE WILL FOLLOW UP WITH AM LABS AND CONTINUE TO MONITOR. - Past Medical History Past Medical History: Hypertension, Diabetes - Past Surgical History Surgical History: Tonsillectomy - Family History Family Medical History: Diabetes Mellitus, Cancer - Social History Does patient currently use any type of tobacco product: No Have you used tobacco products in the last 12 months: No Type of Tobacco Use: None Does any household member use tobacco: No Alcohol Use: None Drug Use: None - Medications Home Medications: No Known Drug Allergies Allergy (Verified 05/18/20 13:20) CONTINUE taking the following medications ascorbic acid (vitamin C) [Vitamin C] 1 mg PO DAILY 05/18/20 [History] aspirin 1 mg PO DAILY 05/18/20 [History] carvedilol [Coreg] 6.25 mg PO DAILY 05/18/20 [History] cholecalciferol (vitamin D3) [Vitamin D3] 125 mcg PO DAILY 05/18/20 [History] duloxetine [Cymbalta] 30 mg PO HS 05/18/20 [History] pantoprazole [Protonix] 40 mg PO DAILY 05/18/20 [History] ropinirole [Requip] 1 mg PO BID 05/18/20 [History] rosuvastatin [Crestor] 10 mg PO HS 05/18/20 [History] sennosides [Senokot] 8.6 mg PO BID 05/18/20 [History] sitagliptin [Januvia] 25 mg PO DAILY 05/18/20 [History] spironolactone [Aldactone] 25 mg PO DAILY 05/18/20 [History] torsemide [Demadex] 20 mg PO DAILY 05/18/20 [History] vitamin B complex 50 tab PO DAILY 05/18/20 [History] warfarin [Coumadin] 10 mg PO HS 05/18/20 [History] - Review of Systems Constitutional: Fever, Weakness, Malaise Eyes: No Symptoms Reported ENT: No Symptoms Reported Respiratory: No Symptoms Reported Cardiovascular: No Symptoms Reported Gastrointestinal: No Symptoms Reported Genitourinary: No Symptoms Reported Musculoskeletal: Foot Pain Skin: See HPI, Wound Neurological: Weakness - Physical Exam Vital Signs: Temperature 99.1 F Pulse Rate [Left Brachial] 79 Pulse Rate 89 Respiratory Rate 20 Blood Pressure [Left Arm] 118/68 Blood Pressure 112/56 O2 Sat by Pulse Oximetry 95 Oriented: Normal Eyes: Normal Ear: Normal Nose: Normal Throat: Normal Respiratory: Diminished Throughout Cardiovascular: Normal : Normal Auscultation: Bowel Sounds: Normal Palpation: Normal Tenderness: Normal Skin: Red (RIGHT FOOT), Tender, Wound (RIGHT GREAT TOE 1X1 CM OPEN WOUND) Musculoskeletal: Right, Foot, Tender Psychiatric: Normal Mood Description: Calm Affect: Normal Speech Pattern: Clear - Assessment/Plan (1) Cellulitis in diabetic foot Status: Acute Plan: ADMIT, ZOSYN 3.375G IV TID, VANCOMYCIN DAILY, GENTAMICIN OINTMENT TO WOUND BID, HUMULIN R SLIDING SCALE, AND HIS HOME MEDICATIONS WERE RESUMED. WOUND CARE, OBTAIN LOWER EXTREMITY CTA (2) Diabetic foot ulcer Qualifiers: Diabetic foot ulcer location: toe Diabetes mellitus type: type 2 Laterality: right Non-pressure ulcer stage: with fat layer exposed Qualified Code(s): E11.621 - Type 2 diabetes mellitus with foot ulcer; L97.512 - Non- pressure chronic ulcer of other part of right foot with fat layer exposed Status: Acute (3) Leukocytosis Qualifiers: Leukocytosis type: unspecified Qualified Code(s): D72.829 - Elevated white blood cell count, unspecified Status: Acute - Allergies Allergies/Adverse Reactions: Allergies Allergy/AdvReac Type Severity Reaction Status Date / Time No Known Drug Allergies Allergy Verified 05/18/20 13:20
--- NOTE | 2020-05-20 09:46 | PCM.PROG ---
Progress Note - Progress Note for Day of Date of Exam: 05/20/20 - Subjective Subjective: IS BEING TREATED FOR CELLULITIS TO THE RIGHT FOOT, DIABETIC ULCER TO THE RIGHT GREAT TOE, AND LEUKOCYTOSIS. TODAY, HE IS ALERT AND ORIENTED, SITTING UP IN THE CHAIR ON MORNING ROUNDS. HE CONTINUES WITH COMPLAINTS OF PAIN TO THE RIGHT FOOT. ON EXAMINATION, HEART IS REGULAR IN RATE AND RHYTHM. BILATERAL LUNGS ARE NOTED WITH DIMINISHED LUNG SOUNDS THROUGHOUT. ABDOMEN IS ROUND, SOFT, AND NON-TENDER WITH NORMAL BOWEL SOUNDS NOTED IN ALL QUADRANTS. A 0ALP8SM OPEN WOUND IS NOTED TO THE BOTTOM OF THE RIGHT GREAT TOE. THERE IS REDNESS AND 1+ PITTING EDEMA TO THE RIGHT LOWER EXTREMITY AND FOOT. THERE IS ALSO REDNESS TO THE LEFT LEG. PMH INCLUDES: HTN, DM TYPE 1, ANEMIA, TONSILLECTOMY, AORTA GRAFT, AND VALVE REPLACEMENT X 2. ON ARRIVAL, VITALS WERE 99.6-90-20-97%-117/60. LABS WERE OBTAINED. ABNORMAL LAB VALUES INCLUDE THE FOLLOWING: HCT 41.8, PLT COUNT 141, BUN 20, GLUCOSE 154, ALBUMIN 3.2, GLOBULIN 4.7. A WOUND CULTURE IS PENDING. A LOWER EXTREMITY CT WAS OBTAINED YESTERDAY AND REVEALED: 1. No significant inflow or outflow vascular disease 2. Numerous large bilateral subcutaneous varicosities 3. Possible cholelithiasis 4. Umbilical hernia containing fat. HE IS CURRENTLY RECEIVING ZOSYN 3.375G IV TID, VANCOMYCIN DAILY, GENTAMICIN OINTMENT TO WOUND BID, HUMULIN R SLIDING SCALE, AND HIS HOME MEDICATIONS WERE RESUMED. WE WILL CONTINUE WITH CURRENT PLAN OF CARE AND WOUND CARE TODAY. OTHERWISE, WE WILL FOLLOW UP WITH AM LABS AND CONTINUE TO MONITOR. - Past Medical Family Social History Past Med/Fam/Surg Hx: No changes since H&P Allergies: Allergies No Known Drug Allergies Allergy (Verified 05/18/20 13:20) - Review of Systems ROS: No change since H&P - Vital Signs and I&O's Vital Signs: Temperature 99.1 F Pulse Rate [Left Brachial] 79 Pulse Rate 89 Respiratory Rate 20 Blood Pressure [Left Arm] 118/68 Blood Pressure 112/56 O2 Sat by Pulse Oximetry 95 Intake and Output: Intake & Output 05/17/20 05/18/20 05/19/20 05/20/20 11:59 11:59 11:59 11:59 Intake Total 1330 / 1330 3172 / 3172 Output Total 1500 / 1500 3350 / 3350 Balance -170 / -170 -178 / -178 - Physical Exam Oriented: Normal Eyes: Normal Ear: Normal Nose: Normal Throat: Normal Cardiovascular: Normal : Normal Auscultation: Bowel Sounds: Normal Palpation: Normal Tenderness: Normal Skin: Red (RIGHT FOOT), Tender, Wound (RIGHT GREAT TOE 1X1 CM OPEN WOUND) Musculoskeletal: Right, Foot, Tender Psychiatric: Normal Mood Description: Calm Affect: Normal Speech Pattern: Clear - Laboratory and Diagnostics Result Diagrams: 05/20/20 04:10 05/20/20 04:10 Labs: 05/18/20 17:05 Toe - Right Big Gram Stain - Final 05/18/20 17:05 Toe - Right Big Wound Culture - Preliminary Laboratory WBC 5.6 X10^3/uL (3.6-10.0) 05/20/20 04:10 RBC 5.10 X10^6/uL (4.7-6.0) 05/20/20 04:10 Hgb 13.6 g/dL (13.5-18.0) 05/20/20 04:10 Hct 41.8 % (42.0-54.0) L 05/20/20 04:10 MCV 81.9 fL (80.0-100.0) 05/20/20 04:10 MCH 26.7 pg (27.0-34.0) L 05/20/20 04:10 MCHC 32.6 g/dL (33.0-35.0) L 05/20/20 04:10 RDW 17.4 % (11.6-16.5) H 05/20/20 04:10 Plt Count 141 X10^3/uL (150.0-450.0) L 05/20/20 04:10 MPV 9.9 fL (7.4-11.0) 05/20/20 04:10 Neut % (Auto) 63.6 % (42.0-75.0) 05/20/20 04:10 Lymph % (Auto) 17.8 % (21.0-51.0) L 05/20/20 04:10 [place] % (Auto) 14.5 % (0.0-13.0) H 05/20/20 04:10 Eos % (Auto) 3.4 % (0.9-2.9) H 05/20/20 04:10 Baso % (Auto) 0.7 % (0.2-1.0) 05/20/20 04:10 Neut # (Auto) 3.6 x10^3/uL (2.2-4.8) 05/20/20 04:10 Lymph # (Auto) 1.0 X10^3/uL (1.3-2.9) L 05/20/20 04:10 [place] # (Auto) 0.8 x10^3/uL (0.3-0.8) 05/20/20 04:10 Eos # (Auto) 0.2 x10^3/uL (0.0-0.2) 05/20/20 04:10 Baso # (Auto) 0.0 X10^3/uL (0.0-0.1) 05/20/20 04:10 Absolute Nucleated RBC 0.0 /100WBC 05/20/20 04:10 PT 26.4 SECONDS (11.8-14.3) 05/18/20 14:26 INR Target Range - 05/18/20 14:26 INR 2.52 (0.8-1.3) H 05/18/20 14:26 APTT 33.0 SECONDS (22.9-36.5) 05/18/20 14:26 PTT Comment - 05/18/20 14:26 Sodium 139 mmol/L (136-145) 05/20/20 04:10 Corrected Sodium 140 mmol/L (136-145) 05/20/20 04:10 Potassium 3.8 mmol/L (3.5-5.1) 05/20/20 04:10 Chloride 102 mmol/L (98-107) 05/20/20 04:10 Carbon Dioxide 26.7 mmol/L (21-32) 05/20/20 04:10 BUN 20 mg/dL (7-18) H 05/20/20 04:10 Creatinine 0.85 mg/dL (0.70-1.30) 05/20/20 04:10 Est GFR (MDRD) Af Amer > 60 (>60) 05/20/20 04:10 Est GFR (MDRD) Non-Af > 60 (>60) 05/20/20 04:10 Glucose 154 mg/dL (65-99) H 05/20/20 04:10 POC Glucose (mg/dL) 165 mg/dL (65-99) H 05/20/20 05:00 Lactic Acid 1.9 mmol/L (0.4-2.0) 05/18/20 14:33 Calcium 9.2 mg/dL (8.5-10.1) 05/20/20 04:10 Corrected Calcium 9.8 mg/dL (8.5-10.1) 05/20/20 04:10 Total Bilirubin 0.60 mg/dL (0.2-1.0) 05/20/20 04:10 AST 34 Units/L (15-37) 05/20/20 04:10 ALT 25 Units/L (12-78) 05/20/20 04:10 Alkaline Phosphatase 81 Units/L (46-116) 05/20/20 04:10 Total Protein 7.9 g/dL (6.4-8.2) 05/20/20 04:10 Albumin 3.2 g/dL (3.4-5.0) L 05/20/20 04:10 Globulin 4.7 g/dL (2.5-4.5) H 05/20/20 04:10 Albumin/Globulin Ratio 0.7 Ratio (1.1-2.1) L 05/20/20 04:10 Specimen Type Random urine 05/18/20 14:53 Urine Color Yellow (YELLOW) 05/18/20 14:53 Urine Appearance Clear (CLEAR) 05/18/20 14:53 Urine pH 5.0 (5.0 - 8.0) 05/18/20 14:53 Ur Specific [place] 1.010 (1.000-1.030) 05/18/20 14:53 Urine Protein Negative (NEGATIVE) 05/18/20 14:53 Urine Glucose (UA) 4+ (NEGATIVE) 05/18/20 14:53 Urine Ketones Negative (NEGATIVE) 05/18/20 14:53 Urine Occult Blood Negative (NEGATIVE) 05/18/20 14:53 Urine Nitrite Negative (NEGATIVE) 05/18/20 14:53 Urine Bilirubin Negative (NEGATIVE) 05/18/20 14:53 Urine Urobilinogen Normal (NORMAL) 05/18/20 14:53 Ur Leukocyte Esterase Negative (NEGATIVE) 05/18/20 14:53 Influenza Type A (PCR) Negative (NEGATIVE) 05/18/20 14:17 Influenza Type B (PCR) Negative (NEGATIVE) 05/18/20 14:17 SARS-CoV-2 (PCR) Negative (NEGATIVE) 05/18/20 14:17 SARS-CoV-2 IgG Ab Cancelled 05/18/20 14:26 SARS-CoV-2 IgG (LYNN) 1 Cancelled 05/18/20 14:26 S. pyogenes (TEM-PCR) Not detected (NOT DETECT) 05/18/20 14:17 - Plan (1) Cellulitis in diabetic foot Status: Acute Plan: ZOSYN 3.375G IV TID, VANCOMYCIN DAILY, GENTAMICIN OINTMENT TO WOUND BID, HUMULIN R SLIDING SCALE, AND HIS HOME MEDICATIONS WERE RESUMED. WOUND CARE (2) Diabetic foot ulcer Status: Acute Qualifiers: Diabetic foot ulcer location: toe Diabetes mellitus type: type 2 Laterality: right Non-pressure ulcer stage: with fat layer exposed Qualified Code(s): E11.621 - Type 2 diabetes mellitus with foot ulcer; L97.512 - Non- pressure chronic ulcer of other part of right foot with fat layer exposed (3) Leukocytosis Status: Acute Qualifiers: Leukocytosis type: unspecified Qualified Code(s): D72.829 - Elevated white blood cell count, unspecified
[2020-05-20] MEDS: NORCO 7.5/325 MG TAB PO PRN (11:38)
[2020-05-20] MEDS: SNACK - Diabetic Appropriate PO SCH (20:58)
[2020-05-20] MEDS: CYMBALTA PO SCH (20:59)
[2020-05-20] MEDS: CRESTOR TAB 10 MG PO SCH (20:59)
[2020-05-20] MEDS: LANTUS SC SCH (21:00)
[2020-05-21] MEDS: NORCO 7.5/325 MG TAB PO PRN (00:01)
[2020-05-21] MEDS ORDERED: KLOR-CON PO PRN (04:56)
[2020-05-21] MEDS ORDERED: K-DUR TAB 20 MEQ PO PRN (04:56)
[2020-05-21] MEDS ORDERED: POTASSIUM CHLORIDE LIQ 20 MEQ UDC PO PRN (04:56)
[2020-05-21] MEDS ORDERED: MAGNESIUM SULFATE 1 GRAM/100 mL PREMIX 1 GM/100 ML BAG IV PRN (04:56)
[2020-05-21] MEDS ORDERED: MICRO K EXTEN CAP 10 MEQ PO PRN (04:56)
[2020-05-21] MEDS ORDERED: POTASSIUM CHL 40 MEQ/NS 0.45% 500 ML IV PRN (04:56)
[2020-05-21] MEDS ORDERED: K-RIDER 10 MEQ/NS 100 ML 10 MEQ/100 ML BAG IV PRN (04:56)
[2020-05-21] MEDS ORDERED: POTASSIUM CHL 60 MEQ/NS 0.45% 500 ML IV PRN (04:56)
[2020-05-21] MEDS: ZOSYN VIAL 3.375 GRAMS 3.375 G in NS 100 ML IV + SPIKE MINIBAG* 100 ML IV SCH (05:35)
[2020-05-21 06:25] LABS: BASOPHILS # (AUTO) 0.1 X10^3/uL (0.0-0.1); EOSINOPHILS # (AUTO) 0.2 x10^3/uL (0.0-0.2); EOSINOPHILS % (AUTO) 3.5 % (0.9-2.9); HEMATOCRIT 43.4 % (42.0-54.0); HEMOGLOBIN 14.1 g/dL (13.5-18.0); LYMPHOCYTES # (AUTO) 0.9 X10^3/uL (1.3-2.9); LYMPHOCYTES % (AUTO) 14.5 % (21.0-51.0); MEAN CORPUSCULAR HEMOGLOBIN 26.7 pg (27.0-34.0); MEAN CORPUSCULAR HGB CONC 32.5 g/dL (33.0-35.0); MEAN CORPUSCULAR VOLUME 82.3 fL (80.0-100.0); MEAN PLATELET VOLUME 9.7 fL (7.4-11.0); MONOCYTES # (AUTO) 0.8 x10^3/uL (0.3-0.8); NEUTROPHILS # (AUTO) 4.3 x10^3/uL (2.2-4.8); PLATELET COUNT 146 X10^3/uL (150.0-450.0); RED BLOOD COUNT 5.28 X10^6/uL (4.7-6.0); RED CELL DISTRIBUTION WIDTH 17.2 % (11.6-16.5); WHITE BLOOD COUNT 6.3 X10^3/uL (3.6-10.0)
[2020-05-21 06:34] LABS: ALANINE AMINOTRANSFERASE 27 Units/L (12-78); ALBUMIN 3.3 g/dL (3.4-5.0); ALKALINE PHOSPHATASE 81 Units/L (46-116); ASPARTATE AMINO TRANSFERASE 35 Units/L (15-37); BLOOD UREA NITROGEN 21 mg/dL (7-18); CALCIUM 9.3 mg/dL (8.5-10.1); CARBON DIOXIDE 29.1 mmol/L (21-32); CHLORIDE 105 mmol/L (98-107); COR CA(FOR HYPOALB) 9.9 mg/dL (8.5-10.1); COR NA(FOR HYPERGLY) 143 mmol/L (136-145); CREATININE 0.89 mg/dL (0.70-1.30); SODIUM 141 mmol/L (136-145); TOTAL PROTEIN 8.1 g/dL (6.4-8.2); eGFR NON BLACK RACES > 60 (>60)
[2020-05-21] MEDS: JANUVIA PO SCH (06:49)
[2020-05-21] MEDS: DEMADEX PO SCH (08:56)
[2020-05-21] MEDS: GENTAMICIN TOPICAL OINT TOP SCH (08:56)
[2020-05-21] MEDS: ALDACTONE TAB 25 MG PO SCH (08:56)
[2020-05-21] MEDS: REQUIP PO SCH (08:57)
[2020-05-21] MEDS: PROTONIX TAB 40 MG PO SCH (08:57)
[2020-05-21] MEDS: SENOKOT PO SCH (08:57)
[2020-05-21] MEDS: VITAMIN B-1 PO SCH (08:58)
[2020-05-21] MEDS: VITAMIN C PO SCH (08:58)
[2020-05-21] MEDS: VITAMIN D3 125 mcg (5,000 UNITS) PO SCH (08:58)
[2020-05-21 08:59] VITALS: BP 118/67
[2020-05-21] MEDS ORDERED: NS IRRIGATION* 1,000 ML 1,000 ML IR ONE (11:35)
== END 2020-05-21 12:00 | disposition home or self-care (01) | DRG 639 ==
LOC: MED/SURG 13:20 → ER 13:20 → OBSVTOIN 17:24 → MED/SURG 17:50
PROVIDERS: ADMIT Internal Medicine; ATTEND Internal Medicine
DX: B95.2 Enterococcus as the cause of diseases classified elsewhere; M54.5 Low back pain; L03.031 Cellulitis of right toe; D72.828 Other elevated white blood cell count; E11.621 Type 2 diabetes mellitus with foot ulcer; Z20.828 Contact with and (suspected) exposure to other viral communicable diseases; B95.61 Methicillin susceptible Staphylococcus aureus infection as the cause of diseases classified elsewhere; I10 Essential (primary) hypertension; R51.9 Headache, unspecified; L97.519 Non-pressure chronic ulcer of other part of right foot with unspecified severity; R79.1 Abnormal coagulation profile

== ENCOUNTER 2023-12-18 16:34 | Observation (INO) ==
[2023-12-18] MEDS ORDERED: PHARMACY CONSULT - VANCOMYCIN XX SCH (19:00)
[2023-12-18 19:24] LABS: BASOPHILS # (AUTO) 0.1 X10^3/uL (0.0-0.1); BASOPHILS % (AUTO) 1.5 % (0.2-1.0); EOSINOPHILS # (AUTO) 0.2 x10^3/uL (0.0-0.2); EOSINOPHILS % (AUTO) 3.8 % (0.9-2.9); HEMATOCRIT 34.3 % (42.0-54.0); LYMPHOCYTES # (AUTO) 0.8 X10^3/uL (1.3-2.9); MEAN CORPUSCULAR HEMOGLOBIN 26.8 pg (27.0-34.0); MEAN CORPUSCULAR VOLUME 83.7 fL (80.0-100.0); MONOCYTES # (AUTO) 0.6 x10^3/uL (0.3-0.8); NEUTROPHILS # (AUTO) 3.1 x10^3/uL (2.2-4.8); NEUTROPHILS % (AUTO) 64.7 % (42.0-75.0); PLATELET COUNT 130 X10^3/uL (150.0-450.0); RED BLOOD COUNT 4.11 X10^6/uL (4.7-6.0); RED CELL DISTRIBUTION WIDTH 14.7 % (11.6-16.5); WHITE BLOOD COUNT 4.8 X10^3/uL (3.6-10.0)
[2023-12-18 19:32] LABS: INR 3.23 (0.8-1.3)
[2023-12-18 19:37] LABS: ALANINE AMINOTRANSFERASE 22 Units/L (12-78); ALKALINE PHOSPHATASE 47 Units/L (46-116); ASPARTATE AMINO TRANSFERASE 28 Units/L (15-37); BLOOD UREA NITROGEN 16 mg/dL (7-18); CALCIUM 8.1 mg/dL (8.5-10.1); CARBON DIOXIDE 29.7 mmol/L (21-32); CHLORIDE 107 mmol/L (98-107); COR CA(FOR HYPOALB) 8.9 mg/dL (8.5-10.1); COR NA(FOR HYPERGLY) 143 mmol/L (136-145); CREATININE 0.56 mg/dL (0.70-1.30); GLUCOSE 157 mg/dL (65-99); POTASSIUM 3.5 mmol/L (3.5-5.1); SODIUM 142 mmol/L (136-145); TOTAL PROTEIN 6.5 g/dL (6.4-8.2); eGFR NON BLACK RACES > 60 (>60)
[2023-12-18] MEDS: ZOSYN VIAL 3.375 GRAMS 3.375 G in NS 100 ML IV 100 ML IV SCH (20:51)
[2023-12-18] MEDS: NS 250 ML IV 25 ML IV PRN (20:51)
[2023-12-18] MEDS: NEURONTIN CAP 300 MG PO SCH (20:52)
[2023-12-18] MEDS: COREG TAB 6.25 MG PO SCH (20:52)
[2023-12-18] MEDS: REQUIP PO SCH (20:52)
[2023-12-18] MEDS: CRESTOR TAB 10 MG PO SCH (20:52)
[2023-12-19] MEDS: VANCOMYCIN IV *PREMIX 2 G/400 ML BAG 2 G/400 ML PIGGYBACK IV SCH (00:15)
[2023-12-19 07:12] LABS: BASOPHILS # (AUTO) 0.1 X10^3/uL (0.0-0.1); BASOPHILS % (AUTO) 1.2 % (0.2-1.0); EOSINOPHILS # (AUTO) 0.2 x10^3/uL (0.0-0.2); EOSINOPHILS % (AUTO) 5.1 % (0.9-2.9); HEMATOCRIT 35.7 % (42.0-54.0); HEMOGLOBIN 11.5 g/dL (13.5-18.0); LYMPHOCYTES # (AUTO) 0.6 X10^3/uL (1.3-2.9); LYMPHOCYTES % (AUTO) 15.6 % (21.0-51.0); MEAN CORPUSCULAR HEMOGLOBIN 26.9 pg (27.0-34.0); MEAN CORPUSCULAR HGB CONC 32.2 g/dL (33.0-35.0); MEAN CORPUSCULAR VOLUME 83.6 fL (80.0-100.0); MEAN PLATELET VOLUME 9.3 fL (7.4-11.0); MONOCYTES # (AUTO) 0.5 x10^3/uL (0.3-0.8); MONOCYTES % (AUTO) 12.5 % (0.0-13.0); NEUTROPHILS # (AUTO) 2.7 x10^3/uL (2.2-4.8); NEUTROPHILS % (AUTO) 65.6 % (42.0-75.0); PLATELET COUNT 129 X10^3/uL (150.0-450.0); RED BLOOD COUNT 4.27 X10^6/uL (4.7-6.0); RED CELL DISTRIBUTION WIDTH 14.8 % (11.6-16.5); WHITE BLOOD COUNT 4.2 X10^3/uL (3.6-10.0)
[2023-12-19 07:30] LABS: ALANINE AMINOTRANSFERASE 26 Units/L (12-78); ALBUMIN 3.1 g/dL (3.4-5.0); ALKALINE PHOSPHATASE 48 Units/L (46-116); ASPARTATE AMINO TRANSFERASE 29 Units/L (15-37); BLOOD UREA NITROGEN 17 mg/dL (7-18); CALCIUM 8.8 mg/dL (8.5-10.1); CARBON DIOXIDE 31.4 mmol/L (21-32); CHLORIDE 106 mmol/L (98-107); COR CA(FOR HYPOALB) 9.5 mg/dL (8.5-10.1); COR NA(FOR HYPERGLY) 143 mmol/L (136-145); CREATININE 0.56 mg/dL (0.70-1.30); GLUCOSE 159 mg/dL (65-99); POTASSIUM 3.9 mmol/L (3.5-5.1); SODIUM 142 mmol/L (136-145); eGFR NON BLACK RACES > 60 (>60)
[2023-12-19] MEDS: FARXIGA PO SCH (08:34)
[2023-12-19] MEDS: VANCOMYCIN IV *PREMIX 1 G/200 ML BAG 1 G/200 ML PIGGYBACK IV SCH (08:38)
[2023-12-19] MEDS ORDERED: VANCOMYCIN IV *PREMIX 2 G/400 ML BAG 2 G/400 ML PIGGYBACK IV SCH (09:00)
[2023-12-19] MEDS ORDERED: PATIENT'S HOME MEDICATION (Dapagliflozin Propanediol [Farxiga] 10 mg tablet) PO SCH (09:00)
[2023-12-19] MEDS ORDERED: NS 250 ML IV 250 ML IV ONE (09:49)
[2023-12-19] MEDS: ALDACTONE TAB 25 MG PO SCH (09:52)
[2023-12-19] MEDS ORDERED: [UNRECOGNIZED DRUG - OTHER] PO SCH (10:30)
[2023-12-19] MEDS ORDERED: DEMEROL INJ IVP PRN (10:35)
--- NOTE | 2023-12-19 10:38 | DR.H&P ---
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 Patient was treated outpatient with Bactrim which helped but the redness got worse. He also has 2 ulcers with purulent drainage on the lower left leg. He was directly admitted from clinic for further management. He was started on IV antibiotics and wound care. Cultures were collected. He states redness has improved from yesterday. Labs/imaging reviewed: -WBC 4.2 Hgb 11.5 K:3.9 INR:3.23 CRP:28 ESR:24 Plan: Continue IV Vancomycin and Zosyn, follow pending cultures. Continue wound care and dressing change. Continue pain control, keep leg elevated. Consult Dr Cabrera. Replace electrolytes as per protocol. Resume home medications. Monitor AM labs/imaging. Past Medical History Past Medical History: Diabetes and Hypertension Past Surgical History Surgical History: CABG/Valve Surgery Family History Family Medical History: Diabetes Mellitus, Cancer and Hypertension Social History Does patient currently use any type of tobacco product: No Type of Tobacco Use: None Does any household member use tobacco: No Alcohol Use: None Drug Use: None Medications Home Medications: Home Medications Medication Instructions Recorded Confirmed Type carvedilol 6.25 mg tablet 3.125 mg PO BID 11/10/21 12/18/23 History gabapentin 300 mg capsule 300 mg PO BID 11/10/21 12/18/23 History hydrocodone 7.5 mg-ibuprofen 200 1 tab PO BID 11/10/21 12/18/23 History mg tablet insulin glargine 100 unit/mL 15 unit subcut QHS 11/10/21 12/18/23 History subcutaneous solution montelukast 10 mg tablet 10 mg PO DAILY 11/10/21 12/18/23 History ropinirole 1 mg tablet 1 mg PO QHS 11/10/21 12/18/23 History rosuvastatin 10 mg tablet 10 mg PO QHS 11/10/21 12/18/23 History spironolactone 25 mg tablet 25 mg PO DAILY 11/10/21 12/18/23 History warfarin 10 mg tablet 10 mg PO QHS 11/10/21 12/18/23 History dapagliflozin propanediol 10 mg 10 mg PO QDAY 12/18/23 12/18/23 History tablet (Farxiga) Allergies Allergies Allergy/AdvReac Type Severity Reaction Status Date / Time No Known Drug Allergies Allergy Verified 05/18/20 13:20 Labs 12/19/23 06:31 12/19/23 06:31 Labs: 12/18/23 19:25 Leg - Left Wound Culture - Preliminary Laboratory WBC 4.2 X10^3/uL (3.6-10.0) 12/19/23 06:31 RBC 4.27 X10^6/uL (4.7-6.0) L 12/19/23 06:31 Hgb 11.5 g/dL (13.5-18.0) L 12/19/23 06:31 Hct 35.7 % (42.0-54.0) L 12/19/23 06:31 MCV 83.6 fL (80.0-100.0) 12/19/23 06:31 MCH 26.9 pg (27.0-34.0) L 12/19/23 06:31 MCHC 32.2 g/dL (33.0-35.0) L 12/19/23 06:31 RDW 14.8 % (11.6-16.5) 12/19/23 06:31 Plt Count 129 X10^3/uL (150.0-450.0) L 12/19/23 06:31 MPV 9.3 fL (7.4-11.0) 12/19/23 06:31 Neut % (Auto) 65.6 % (42.0-75.0) 12/19/23 06:31 Lymph % (Auto) 15.6 % (21.0-51.0) L 12/19/23 06:31 [place] % (Auto) 12.5 % (0.0-13.0) 12/19/23 06:31 Eos % (Auto) 5.1 % (0.9-2.9) H 12/19/23 06:31 Baso % (Auto) 1.2 % (0.2-1.0) H 12/19/23 06:31 Neut # (Auto) 2.7 x10^3/uL (2.2-4.8) 12/19/23 06:31 Lymph # (Auto) 0.6 X10^3/uL (1.3-2.9) L 12/19/23 06:31 [place] # (Auto) 0.5 x10^3/uL (0.3-0.8) 12/19/23 06:31 Eos # (Auto) 0.2 x10^3/uL (0.0-0.2) 12/19/23 06:31 Baso # (Auto) 0.1 X10^3/uL (0.0-0.1) 12/19/23 06:31 Absolute Nucleated RBC 0.1 /100WBC 12/19/23 06:31 ESR 24 MM/HOUR (0-15) H 12/18/23 19:10 PT 31.8 SECONDS (11.8-14.3) 12/18/23 19:10 INR Target Range - 12/18/23 19:10 INR 3.23 (0.8-1.3) H 12/18/23 19:10 Sodium 142 mmol/L (136-145) 12/19/23 06:31 Corrected Sodium 143 mmol/L (136-145) 12/19/23 06:31 Potassium 3.9 mmol/L (3.5-5.1) 12/19/23 06:31 Chloride 106 mmol/L (98-107) 12/19/23 06:31 Carbon Dioxide 31.4 mmol/L (21-32) 12/19/23 06:31 BUN 17 mg/dL (7-18) 12/19/23 06:31 Creatinine 0.56 mg/dL (0.70-1.30) L 12/19/23 06:31 Est GFR (MDRD) Af Amer > 60 (>60) 12/19/23 06:31 Est GFR (MDRD) Non-Af > 60 (>60) 12/19/23 06:31 Glucose 159 mg/dL (65-99) H 12/19/23 06:31 POC Glucose (mg/dL) 164 mg/dL (65-99) H 12/19/23 05:23 Calcium 8.8 mg/dL (8.5-10.1) 12/19/23 06:31 Corrected Calcium 9.5 mg/dL (8.5-10.1) 12/19/23 06:31 Total Bilirubin 0.50 mg/dL (0.2-1.0) 12/19/23 06:31 AST 29 Units/L (15-37) 12/19/23 06:31 ALT 26 Units/L (12-78) 12/19/23 06:31 Alkaline Phosphatase 48 Units/L (46-116) 12/19/23 06:31 C-Reactive Protein 28.10 mg/L (0-3.0) H 12/18/23 19:10 Total Protein 7.0 g/dL (6.4-8.2) 12/19/23 06:31 Albumin 3.1 g/dL (3.4-5.0) L 12/19/23 06:31 Globulin 3.9 g/dL (2.5-4.5) 12/19/23 06:31 Albumin/Globulin Ratio 0.8 Ratio (1.1-2.1) L 12/19/23 06:31 Review of Systems Constitutional: No Symptoms Reported Eyes: No Symptoms Reported Respiratory: No Symptoms Reported Cardiovascular: No Symptoms Reported Gastrointestinal: No Symptoms Reported Genitourinary: No Symptoms Reported Musculoskeletal: Leg Pain Skin: Lesions Neurological: No Symptoms Reported Physical Exam Vital Signs: Vital Signs Temperature 98.1 F Temperature 98.5 F Pulse Rate [Brachial] 68 Pulse Rate [Brachial] 64 Respiratory Rate 18 Respiratory Rate 18 Blood Pressure [Left Arm] 133/67 Blood Pressure [Left Arm] 133/70 O2 Sat by Pulse Oximetry 92 O2 Sat by Pulse Oximetry 95 Oriented: Normal Eyes: Normal Nose: Normal Throat: Normal Respiratory: Clear Throughout Cardiovascular: Normal Auscultation: Bowel Sounds: Normal Palpation: Normal Tenderness: Normal Skin: Red, Tender and Hot Musculoskeletal: Left and Leg (erythema and swelling noted, ulceration present with purulent drainage ) Psychiatric: Normal Mood Description: Calm Affect: Normal Speech Pattern: Clear and Appropriate Assessment/Plan (1) Cellulitis in diabetic foot: Status: Acute (2) Diabetic foot ulcer: Qualifiers: Diabetes mellitus type: type 2 Diabetic foot ulcer location: toe Laterality: right Non-pressure ulcer stage: with fat layer exposed Qualified Code(s): E11.621 - Type 2 diabetes mellitus with foot ulcer; L97.512 - Non- pressure chronic ulcer of other part of right foot with fat layer exposed Status: Acute (3) Chronic ulcer of right foot: Qualifiers: Non-pressure ulcer stage: unspecified non-pressure ulcer stage Qual ified Code(s): L97.519 - Non-pressure chronic ulcer of other part of right foot with unspecified severity Status: Acute (4) Type 2 diabetes mellitus: Qualifiers: Diabetes mellitus technician terminal and repeater insulin use: with technician terminal and repeater use Diabetes mellitus complication status: with skin complications Diabetes mellitus complication detail: with foot ulcer Qualified Code(s): E11.621 - Type 2 diab etes mellitus with foot ulcer; L97.509 - Non-pressure chronic ulcer of other part of unspecified foot with unspecified severity; Z79.4 - halfway (current) use of insulin Status: Acute (5) Heart valve replaced: Status: Acute (6) CAD (coronary artery disease): Qualifiers: Coronary Disease-Associated Artery/Lesion type: bypass graft [place] vs. transplanted heart: [place] heart Associated angina: without angina Qualified Code(s): I25.810 - Atherosclerosis of coronary artery bypass graft(s) without angina pectoris Status: Acute (7) Anemia: Qualifiers: Anemia type: unspecified type Qualified Code(s): D64.9 - Anemia, unspecified Status: Acute Review H&P Reviewed: Yes Patient was examined?: Yes
[2023-12-19] MEDS ORDERED: SILVADENE ONE (15:41)
[2023-12-19] MEDS ORDERED: HYDROGEN PEROXIDE 3% ONE (15:42)
[2023-12-19] MEDS: SILVADENE TOP ONE (16:08)
[2023-12-19] MEDS: HYDROGEN PEROXIDE 3% EXT SCH (16:08)
--- NOTE | 2023-12-19 17:03 | VAS ---
EXAM:LOWER EXT VENOUS, BILATERALHISTORY:DIABETIC ULCER;COMPARISON:No relevant prior studies available.TECHNIQUE:Grayscale and color Doppler images of the lower extremities.FINDINGS:Right lower extremity:Common femoral, femoral, popliteal and posterior tibial veins demonstrate normal compressibility, color Doppler flow, waveforms and augmentation with no filling defects.Soft tissues: UnremarkableLeft lower extremity:Common femoral, femoral, popliteal and posterior tibial veins demonstrate normal compressibility, color Doppler flow, waveforms and augmentation with no filling defects.Soft tissues:Benign-appearing left inguinal lymph node measuring 1.7 cm in short axis.IMPRESSION:No evidence of deep venous thrombus in either lower extremity.THIS IS AN ELECTRONICALLY VERIFIED FINAL REPORT12/19/2023 4:49 PM - Electronically signed by Markos Parikh MD
[2023-12-19] MEDS: BETADINE SOLN ONE (17:37)
[2023-12-19] MEDS: NovoLIN R (or HumuLIN R) SC PRN (18:17)
[2023-12-19] MEDS: SNACK - Diabetic Appropriate PO SCH (21:00)
[2023-12-19] MEDS: LANTUS SC SCH (21:15)
[2023-12-19 23:03] LABS: INR 2.46 (0.8-1.3)
[2023-12-19] MEDS: COUMADIN PO SCH (23:14)
[2023-12-20] MEDS: PHARMACY COMMENT IV NR (05:00)
[2023-12-20 07:02] LABS: INR 2.33 (0.8-1.3)
[2023-12-20 07:05] LABS: BASOPHILS % (AUTO) 0.9 % (0.2-1.0); EOSINOPHILS # (AUTO) 0.2 x10^3/uL (0.0-0.2); EOSINOPHILS % (AUTO) 5.1 % (0.9-2.9); HEMATOCRIT 35.6 % (42.0-54.0); HEMOGLOBIN 11.5 g/dL (13.5-18.0); LYMPHOCYTES # (AUTO) 0.8 X10^3/uL (1.3-2.9); LYMPHOCYTES % (AUTO) 19.4 % (21.0-51.0); MEAN CORPUSCULAR HEMOGLOBIN 26.9 pg (27.0-34.0); MEAN CORPUSCULAR HGB CONC 32.3 g/dL (33.0-35.0); MEAN CORPUSCULAR VOLUME 83.2 fL (80.0-100.0); MEAN PLATELET VOLUME 9.2 fL (7.4-11.0); MONOCYTES # (AUTO) 0.5 x10^3/uL (0.3-0.8); MONOCYTES % (AUTO) 12.5 % (0.0-13.0); NEUTROPHILS # (AUTO) 2.4 x10^3/uL (2.2-4.8); NEUTROPHILS % (AUTO) 62.1 % (42.0-75.0); PLATELET COUNT 121 X10^3/uL (150.0-450.0); RED BLOOD COUNT 4.28 X10^6/uL (4.7-6.0); RED CELL DISTRIBUTION WIDTH 14.9 % (11.6-16.5); WHITE BLOOD COUNT 3.9 X10^3/uL (3.6-10.0)
[2023-12-20 07:11] LABS: VANCOMYCIN,TROUGH 10.1 ug/mL (15-20)
[2023-12-20 07:20] LABS: ALANINE AMINOTRANSFERASE 21 Units/L (12-78); ALBUMIN 2.9 g/dL (3.4-5.0); ALKALINE PHOSPHATASE 45 Units/L (46-116); ASPARTATE AMINO TRANSFERASE 21 Units/L (15-37); BLOOD UREA NITROGEN 16 mg/dL (7-18); CALCIUM 8.5 mg/dL (8.5-10.1); CARBON DIOXIDE 29.2 mmol/L (21-32); CHLORIDE 107 mmol/L (98-107); COR CA(FOR HYPOALB) 9.4 mg/dL (8.5-10.1); COR NA(FOR HYPERGLY) 143 mmol/L (136-145); CREATININE 0.56 mg/dL (0.70-1.30); GLUCOSE 125 mg/dL (65-99); SODIUM 142 mmol/L (136-145); TOTAL PROTEIN 6.5 g/dL (6.4-8.2); eGFR NON BLACK RACES > 60 (>60)
[2023-12-20] MEDS ORDERED: VANCOMYCIN IV *PREMIX 1.25 G/250 ML BAG 1.25 G/250 ML PIGGYBACK IV SCH (08:30)
[2023-12-20] MEDS: VANCOMYCIN IV *PREMIX 1 G/200 ML BAG 1 G/200 ML PIGGYBACK IV SCH (08:36)
[2023-12-20 10:16] VITALS: BMI 46.0
[2023-12-20] MEDS ORDERED: PHARMACY COMMENT IV SCH (11:00)
--- NOTE | 2023-12-20 11:15 | PCM.PROG ---
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 This morning he is resting comfortably in bed. No acute events overnight. General surgery-Dr Pamela carpio onsulted. Recommend continue IV antibiotics and dressing changes. No surgical intervention at this time. Labs/imaging reviewed: -WBC 3.9, Hgb 11.5, Plt 121, INR 2.33(range 2.5-3.5) -Na 142, K 4.0, Creatinine 0.56, Glucose 125 -Wound culture gram negative rods Plan: Continue IV Vancomycin and Zosyn, follow pending cultures. Continue wound care and dressing change. Continue pain control, keep leg elevated. Follow general surgery recommendations. Replace electrolytes as per protocol. Home medications have been resumed. Monitor AM labs/imaging. Past Medical Family Social History Allergies: Allergies No Known Drug Allergies Allergy (Verified 05/18/20 13:20) Review of Systems ROS changes noted: see HPI Vital Signs and I&O's Vital Signs: Vital Signs Temperature 97.8 F Temperature 98.1 F Pulse Rate [Brachial] 76 Pulse Rate [Brachial] 64 Respiratory Rate 18 Respiratory Rate 20 Blood Pressure [Left Arm] 127/56 Blood Pressure [Left Arm] 119/65 O2 Sat by Pulse Oximetry 93 O2 Sat by Pulse Oximetry 95 Intake and Output: Intake & Output 12/17/23 12/18/23 12/19/23 12/20/23 23:59 23:59 23:59 23:59 Intake Total 163 / 163 2206 / 2206 308 / 308 Balance 163 / 163 2206 / 2206 308 / 308 Physical Exam Oriented: Normal Eyes: Normal Nose: Normal Throat: Normal Respiratory: Normal Cardiovascular: Normal Auscultation: Bowel Sounds: Normal Tenderness: Normal Skin: Red, Tender and Hot Musculoskeletal: Left and Leg (erythema and swelling noted, ulceration, wound dressing) Psychiatric: Normal Mood Description: Calm Affect: Normal Speech Pattern: Clear and Appropriate Laboratory and Diagnostics 12/20/23 05:45 12/20/23 05:45 Labs: 12/18/23 19:25 Leg - Left Wound Culture - Preliminary 12/18/23 19:27 Blood Blood Culture - Preliminary 12/18/23 19:10 Blood Blood Culture - Preliminary Laboratory WBC 3.9 X10^3/uL (3.6-10.0) 12/20/23 05:45 RBC 4.28 X10^6/uL (4.7-6.0) L 12/20/23 05:45 Hgb 11.5 g/dL (13.5-18.0) L 12/20/23 05:45 Hct 35.6 % (42.0-54.0) L 12/20/23 05:45 MCV 83.2 fL (80.0-100.0) 12/20/23 05:45 MCH 26.9 pg (27.0-34.0) L 12/20/23 05:45 MCHC 32.3 g/dL (33.0-35.0) L 12/20/23 05:45 RDW 14.9 % (11.6-16.5) 12/20/23 05:45 Plt Count 121 X10^3/uL (150.0-450.0) L 12/20/23 05:45 MPV 9.2 fL (7.4-11.0) 12/20/23 05:45 Neut % (Auto) 62.1 % (42.0-75.0) 12/20/23 05:45 Lymph % (Auto) 19.4 % (21.0-51.0) L 12/20/23 05:45 [place] % (Auto) 12.5 % (0.0-13.0) 12/20/23 05:45 Eos % (Auto) 5.1 % (0.9-2.9) H 12/20/23 05:45 Baso % (Auto) 0.9 % (0.2-1.0) 12/20/23 05:45 Neut # (Auto) 2.4 x10^3/uL (2.2-4.8) 12/20/23 05:45 Lymph # (Auto) 0.8 X10^3/uL (1.3-2.9) L 12/20/23 05:45 [place] # (Auto) 0.5 x10^3/uL (0.3-0.8) 12/20/23 05:45 Eos # (Auto) 0.2 x10^3/uL (0.0-0.2) 12/20/23 05:45 Baso # (Auto) 0.0 X10^3/uL (0.0-0.1) 12/20/23 05:45 Absolute Nucleated RBC 0.1 /100WBC 12/20/23 05:45 ESR 24 MM/HOUR (0-15) H 12/18/23 19:10 PT 24.8 SECONDS (11.8-14.3) 12/20/23 05:45 INR Target Range - 12/20/23 05:45 INR 2.33 (0.8-1.3) H 12/20/23 05:45 Sodium 142 mmol/L (136-145) 12/20/23 05:45 Corrected Sodium 143 mmol/L (136-145) 12/20/23 05:45 Potassium 4.0 mmol/L (3.5-5.1) 12/20/23 05:45 Chloride 107 mmol/L (98-107) 12/20/23 05:45 Carbon Dioxide 29.2 mmol/L (21-32) 12/20/23 05:45 BUN 16 mg/dL (7-18) 12/20/23 05:45 Creatinine 0.56 mg/dL (0.70-1.30) L 12/20/23 05:45 Est GFR (MDRD) Af Amer > 60 (>60) 12/20/23 05:45 Est GFR (MDRD) Non-Af > 60 (>60) 12/20/23 05:45 Glucose 125 mg/dL (65-99) H 12/20/23 05:45 POC Glucose (mg/dL) 143 mg/dL (65-99) H 12/20/23 11:06 Calcium 8.5 mg/dL (8.5-10.1) 12/20/23 05:45 Corrected Calcium 9.4 mg/dL (8.5-10.1) 12/20/23 05:45 Total Bilirubin 0.40 mg/dL (0.2-1.0) 12/20/23 05:45 AST 21 Units/L (15-37) 12/20/23 05:45 ALT 21 Units/L (12-78) 12/20/23 05:45 Alkaline Phosphatase 45 Units/L (46-116) L 12/20/23 05:45 C-Reactive Protein 28.10 mg/L (0-3.0) H 12/18/23 19:10 Total Protein 6.5 g/dL (6.4-8.2) 12/20/23 05:45 Albumin 2.9 g/dL (3.4-5.0) L 12/20/23 05:45 Globulin 3.6 g/dL (2.5-4.5) 12/20/23 05:45 Albumin/Globulin Ratio 0.8 Ratio (1.1-2.1) L 12/20/23 05:45 Vancomycin Trough 10.1 ug/mL (15-20) L 12/20/23 05:45 Plan (1) Cellulitis in diabetic foot: Status: Acute (2) Diabetic foot ulcer: Status: Acute Qualifiers: Diabetes mellitus type: type 2 Diabetic foot ulcer location: toe Laterality: right Non-pressure ulcer stage: with fat layer exposed Qualified Code(s): E11.621 - Type 2 diabetes mellitus with foot ulcer; L97.512 - Non- pressure chronic ulcer of other part of right foot with fat layer exposed (3) Chronic ulcer of right foot: Status: Acute Qualifiers: Non-pressure ulcer stage: unspecified non-pressure ulcer stage Qualified Code(s): L97.519 - Non-pressure chronic ulcer of other part of right foot with unspecified severity (4) Type 2 diabetes mellitus: Status: Acute Qualifiers: Diabetes mellitus jail insulin use: with terminal carman use Diabetes mellitus complication status: with skin complications Diabetes mellitus complication detail: with foot ulcer Qualified Code(s): E11.621 - Type 2 diabetes mellitus with foot ulcer; L97.509 - Non-pressure chronic ulcer of other part of unspecified foot with unspecified severity; Z79.4 - terminal carman (current) use of insulin (5) Heart valve replaced: Status: Acute (6) CAD (coronary artery disease): Status: Acute Qualifiers: Coronary Disease-Associated Artery/Lesion type: bypass graft [place] vs. transplanted heart: [place] heart Associated angina: without angina Qualified Code(s): I25.810 - Atherosclerosis of coronary artery bypass graft(s) without angina pectoris (7) Anemia: Status: Acute Qualifiers: Anemia type: unspecified type Qualified Code(s): D64.9 - Anemia, unspecified
[2023-12-21] MEDS ORDERED: PHARMACY COMMENT IV NR (05:00)
[2023-12-21 06:04] LABS: BASOPHILS # (AUTO) 0.1 X10^3/uL (0.0-0.1); BASOPHILS % (AUTO) 1.2 % (0.2-1.0); EOSINOPHILS # (AUTO) 0.3 x10^3/uL (0.0-0.2); EOSINOPHILS % (AUTO) 6.3 % (0.9-2.9); HEMATOCRIT 40.3 % (42.0-54.0); HEMOGLOBIN 12.8 g/dL (13.5-18.0); LYMPHOCYTES # (AUTO) 0.9 X10^3/uL (1.3-2.9); LYMPHOCYTES % (AUTO) 20.1 % (21.0-51.0); MEAN CORPUSCULAR HEMOGLOBIN 26.7 pg (27.0-34.0); MEAN CORPUSCULAR HGB CONC 31.9 g/dL (33.0-35.0); MEAN CORPUSCULAR VOLUME 83.7 fL (80.0-100.0); MONOCYTES # (AUTO) 0.5 x10^3/uL (0.3-0.8); MONOCYTES % (AUTO) 10.8 % (0.0-13.0); NEUTROPHILS # (AUTO) 2.9 x10^3/uL (2.2-4.8); NEUTROPHILS % (AUTO) 61.6 % (42.0-75.0); PLATELET COUNT 153 X10^3/uL (150.0-450.0); RED BLOOD COUNT 4.81 X10^6/uL (4.7-6.0); WHITE BLOOD COUNT 4.7 X10^3/uL (3.6-10.0)
[2023-12-21 06:21] LABS: ALANINE AMINOTRANSFERASE 23 Units/L (12-78); ALBUMIN 3.3 g/dL (3.4-5.0); ALKALINE PHOSPHATASE 54 Units/L (46-116); ASPARTATE AMINO TRANSFERASE 24 Units/L (15-37); BLOOD UREA NITROGEN 13 mg/dL (7-18); CALCIUM 8.8 mg/dL (8.5-10.1); CARBON DIOXIDE 27.8 mmol/L (21-32); CHLORIDE 104 mmol/L (98-107); COR CA(FOR HYPOALB) 9.4 mg/dL (8.5-10.1); COR NA(FOR HYPERGLY) 139 mmol/L (136-145); CREATININE 0.57 mg/dL (0.70-1.30); GLUCOSE 119 mg/dL (65-99); SODIUM 139 mmol/L (136-145); TOTAL PROTEIN 7.4 g/dL (6.4-8.2); eGFR NON BLACK RACES > 60 (>60)
[2023-12-21] MEDS: COUMADIN TAB 4 MG (JANTOVEN) PO NR (10:31)
--- NOTE | 2023-12-21 10:49 | DR.PROGNOT ---
HOSPITAL PROGRESS NOTE Progress Note for Day of: Progress Note Date: 12/21/23 Chief Complaint Chief Complaint: Patient is doing better with improving cellulitis of the left leg. Last culture was E. coli. Dressing was changed irrigated and covered with the Xeroform sheet. The rest of his systemic review is the same as before, patient is afebrile. Past Medical Family Social History Allergies: Allergies No Known Drug Allergies Allergy (Verified 05/18/20 13:20) Review Of Systems Changes in ROS: see HPI Vital Signs Vital Signs: Vital Signs Temperature 98.1 F Temperature 98.7 F Pulse Rate [Brachial] 69 Pulse Rate [Brachial] 62 Respiratory Rate 17 Respiratory Rate 22 Blood Pressure [Left Arm] 130/83 Blood Pressure [Left Arm] 121/68 O2 Sat by Pulse Oximetry 98 O2 Sat by Pulse Oximetry 94 Physical Exam Oriented: Normal Eyes: Normal Nose: Normal Throat: Normal Respiratory: Normal Cardiovascular: Normal GI:Auscultation: Normal GI:Palpation: Normal GI: Tenderness: Normal Skin: Red, Tender and Hot Musculoskeletal: Left and Leg (erythema and swelling noted, ulceration, wound dressing) Psychiatric: Normal Mood Description: Calm Affect: Normal Speech Pattern: Clear and Appropriate Laboratory and Diagnostics 12/21/23 05:34 12/21/23 05:34 Labs: 12/18/23 19:25 Leg - Left Wound Culture - Final Escherichia Coli 12/18/23 19:27 Blood Blood Culture - Preliminary 12/18/23 19:10 Blood Blood Culture - Preliminary Laboratory WBC 4.7 X10^3/uL (3.6-10.0) 12/21/23 05:34 RBC 4.81 X10^6/uL (4.7-6.0) 12/21/23 05:34 Hgb 12.8 g/dL (13.5-18.0) L 12/21/23 05:34 Hct 40.3 % (42.0-54.0) L 12/21/23 05:34 MCV 83.7 fL (80.0-100.0) 12/21/23 05:34 MCH 26.7 pg (27.0-34.0) L 12/21/23 05:34 MCHC 31.9 g/dL (33.0-35.0) L 12/21/23 05:34 RDW 15.0 % (11.6-16.5) 12/21/23 05:34 Plt Count 153 X10^3/uL (150.0-450.0) 12/21/23 05:34 MPV 9.0 fL (7.4-11.0) 12/21/23 05:34 Neut % (Auto) 61.6 % (42.0-75.0) 12/21/23 05:34 Lymph % (Auto) 20.1 % (21.0-51.0) L 12/21/23 05:34 [place] % (Auto) 10.8 % (0.0-13.0) 12/21/23 05:34 Eos % (Auto) 6.3 % (0.9-2.9) H 12/21/23 05:34 Baso % (Auto) 1.2 % (0.2-1.0) H 12/21/23 05:34 Neut # (Auto) 2.9 x10^3/uL (2.2-4.8) 12/21/23 05:34 Lymph # (Auto) 0.9 X10^3/uL (1.3-2.9) L 12/21/23 05:34 [place] # (Auto) 0.5 x10^3/uL (0.3-0.8) 12/21/23 05:34 Eos # (Auto) 0.3 x10^3/uL (0.0-0.2) H 12/21/23 05:34 Baso # (Auto) 0.1 X10^3/uL (0.0-0.1) 12/21/23 05:34 Absolute Nucleated RBC 0.0 /100WBC 12/21/23 05:34 ESR 24 MM/HOUR (0-15) H 12/18/23 19:10 PT 23.8 SECONDS (11.8-14.3) 12/21/23 08:35 INR Target Range - 12/21/23 08:35 INR 2.20 (0.8-1.3) H 12/21/23 08:35 Sodium 139 mmol/L (136-145) 12/21/23 05:34 Corrected Sodium 139 mmol/L (136-145) 12/21/23 05:34 Potassium 4.0 mmol/L (3.5-5.1) 12/21/23 05:34 Chloride 104 mmol/L (98-107) 12/21/23 05:34 Carbon Dioxide 27.8 mmol/L (21-32) 12/21/23 05:34 BUN 13 mg/dL (7-18) 12/21/23 05:34 Creatinine 0.57 mg/dL (0.70-1.30) L 12/21/23 05:34 Est GFR (MDRD) Af Amer > 60 (>60) 12/21/23 05:34 Est GFR (MDRD) Non-Af > 60 (>60) 12/21/23 05:34 Glucose 119 mg/dL (65-99) H 12/21/23 05:34 POC Glucose (mg/dL) 114 mg/dL (65-99) H 12/21/23 05:15 Calcium 8.8 mg/dL (8.5-10.1) 12/21/23 05:34 Corrected Calcium 9.4 mg/dL (8.5-10.1) 12/21/23 05:34 Total Bilirubin 0.60 mg/dL (0.2-1.0) 12/21/23 05:34 AST 24 Units/L (15-37) 12/21/23 05:34 ALT 23 Units/L (12-78) 12/21/23 05:34 Alkaline Phosphatase 54 Units/L (46-116) 12/21/23 05:34 C-Reactive Protein 28.10 mg/L (0-3.0) H 12/18/23 19:10 Total Protein 7.4 g/dL (6.4-8.2) 12/21/23 05:34 Albumin 3.3 g/dL (3.4-5.0) L 12/21/23 05:34 Globulin 4.1 g/dL (2.5-4.5) 12/21/23 05:34 Albumin/Globulin Ratio 0.8 Ratio (1.1-2.1) L 12/21/23 05:34 Vancomycin Trough 10.1 ug/mL (15-20) L 12/20/23 05:45 Assessment and Plan 1: Cellulitis left leg with open ulcer 2 x 2 centimeter. Continue local care with the dressing changes, application of Xeroform sheet, 4 x 4 and ABD and Evie dressing. Dressing could be changed every 3 days. Will follow in 2 weeks.
[2023-12-21 12:48] VITALS: BP 128/76; PULSE 62; RESP 18; TEMP 98; O2SAT 92
== END 2023-12-21 12:20 | disposition home or self-care (01) ==
LOC: MED/SURG
PROVIDERS: ADMIT Internal Medicine; ATTEND Internal Medicine
DX: B96.29 Other Escherichia coli [E. coli] as the cause of diseases classified elsewhere; I25.810 Atherosclerosis of coronary artery bypass graft(s) without angina pectoris; Z89.422 Acquired absence of other left toe(s); Z65.8 Other specified problems related to psychosocial circumstances; R79.1 Abnormal coagulation profile; L97.518 Non-pressure chronic ulcer of other part of right foot with other specified severity; E11.628 Type 2 diabetes mellitus with other skin complications; I87.2 Venous insufficiency (chronic) (peripheral); D64.89 Other specified anemias; R79.82 Elevated C-reactive protein (CRP); Z89.411 Acquired absence of right great toe; E11.621 Type 2 diabetes mellitus with foot ulcer; I10 Essential (primary) hypertension; L03.116 Cellulitis of left lower limb; E11.65 Type 2 diabetes mellitus with hyperglycemia; F41.8 Other specified anxiety disorders; Z79.4 Long term (current) use of insulin; R70.0 Elevated erythrocyte sedimentation rate; Z95.2 Presence of prosthetic heart valve

== ENCOUNTER 2024-04-17 18:12 | Observation (INO) ==
[2024-04-17 19:27] LABS: BASOPHILS # (AUTO) 0.2 X10^3/uL (0.0-0.1); BASOPHILS % (AUTO) 4.4 % (0.2-1.0); EOSINOPHILS # (AUTO) 0.2 x10^3/uL (0.0-0.2); EOSINOPHILS % (AUTO) 3.5 % (0.9-2.9); HEMATOCRIT 36.5 % (42.0-54.0); HEMOGLOBIN 11.8 g/dL (13.5-18.0); LYMPHOCYTES # (AUTO) 0.7 X10^3/uL (1.3-2.9); LYMPHOCYTES % (AUTO) 16.2 % (21.0-51.0); MEAN CORPUSCULAR HEMOGLOBIN 27.3 pg (27.0-34.0); MEAN CORPUSCULAR HGB CONC 32.4 g/dL (33.0-35.0); MEAN CORPUSCULAR VOLUME 84.3 fL (80.0-100.0); MEAN PLATELET VOLUME 8.5 fL (7.4-11.0); MONOCYTES # (AUTO) 0.4 x10^3/uL (0.3-0.8); MONOCYTES % (AUTO) 7.9 % (0.0-13.0); NEUTROPHILS # (AUTO) 3.1 x10^3/uL (2.2-4.8); PLATELET COUNT 126 X10^3/uL (150.0-450.0); RED BLOOD COUNT 4.33 X10^6/uL (4.7-6.0); RED CELL DISTRIBUTION WIDTH 17.4 % (11.6-16.5); WHITE BLOOD COUNT 4.6 X10^3/uL (3.6-10.0)
[2024-04-17 19:48] LABS: ALANINE AMINOTRANSFERASE 23 Units/L (12-78); ALBUMIN 3.4 g/dL (3.4-5.0); ALKALINE PHOSPHATASE 67 Units/L (46-116); ASPARTATE AMINO TRANSFERASE 30 Units/L (15-37); BLOOD UREA NITROGEN 18 mg/dL (7-18); CALCIUM 8.5 mg/dL (8.5-10.1); CARBON DIOXIDE 30.1 mmol/L (21-32); CHLORIDE 103 mmol/L (98-107); CREATININE 0.62 mg/dL (0.70-1.30); GLUCOSE 103 mg/dL (65-99); POTASSIUM 3.7 mmol/L (3.5-5.1); SODIUM 136 mmol/L (136-145); TOTAL PROTEIN 7.1 g/dL (6.4-8.2); eGFR NON BLACK RACES > 60 (>60)
[2024-04-17] MEDS: VANCOMYCIN IV *PREMIX 1 G/200 ML BAG 1 G/200 ML PIGGYBACK IV ONE ×2 (20:24→23:05)
--- NOTE | 2024-04-17 21:08 | DR.EXTPAIN ---
HPI Time seen Time Seen by Provider: 04/17/24 21:06 PCP Primary Care Physician: Maximiliano Zepeda HPI Comment HPI Comment: Patient is type II diabetic with a recurrent history of diabetic foot ulcers and cellulitis. Patient recently was started on Keflex for cellulitis in the area of his diabetic ulcers. It has not improved and actually seems worse according to patient's family. Denies any fevers. Upon checking previous records appears that patient has had a multiple occasions infection but white count does not elevate much although CRP does reflect the infectious process. 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 Complaint/Symptoms Chief Complaint:: Pt in ED With Complaints Of Bilateral Lower Extremity Ulcers W/Weeping. Pt Is a Diabetic and States The Wounds Appeared About 3 Weeks Ago And Have Cont To Get Worse. COVID-19 Coronavirus risk:travel/contact w/high risk person: No Has patient experienced Coronavirus symptoms: No Source History Provided: Patient Mode of arrival Mode of Arrival: Ambulatory Timing Onset of Chief Complaint: 04/17/24 PMH PMH Past Medical History: Yes Past Medical History: Arthritis, Diabetes and Hypertension Past Medical History Comment: Neuropathy Past Surgical History: Yes Surgical History: CABG/Valve Surgery and Tonsillectomy Past Surgical History Comment: Toe Removal Bilateral Family History History of Family Medical Conditions: Yes Family Medical History: Diabetes Mellitus, Cancer and Hypertension Social History Do you use any recreational Drugs:: No Travel Risk Coronavirus risk:travel/contact w/high risk person: No Has patient experienced Coronavirus symptoms: No Infectious screening Have you traveled outside the country in the last 6 months?: No Isolation: Standard ROS Review of Systems Constitutional: No Symptoms Reported Eyes: No Symptoms Reported ENTM: No Symptoms Reported Respiratoy: No Symptoms Reported Cardiovascular: No Symptoms Reported Gastrointestinal/Abdominal: No Symptoms Reported Genitourinary: No Symptoms Reported Neurological: No Symptoms Reported Musculoskeletal: No Symptoms Reported Integumentary: See HPI Hematologic/Lymphatic: No Symptoms Reported Endocrine: No Symptoms Reported Psychiatric: No Symptoms Reported All Other Systems: Reviewed and Negative PE Vital Signs Vitals: Vital Signs Temperature 98.1 F Pulse Rate 102 Respiratory Rate 20 Blood Pressure 132/78 O2 Sat by Pulse Oximetry 94 General Limitations: No Limitations General Appearance: Alert and In No Apparent Distress Head Head Exam: Normal Inspection Eyes Eye exam: Normal Appearance ENT ENT Exam: Normal Exam Neck Neck Exam: Normal Inspection Chest Chest Inspection: Normal Inspection Respiratory Respiratory Exam: Normal Lung Sounds Bilat Cardiovascular Cardiovascular Exam: Regular Rate and Normal Rhythm Abdominal Exam Abdominal Exam: Normal Inspection, Normal Bowel Sounds and Soft Extremities Extremities Exam: Normal Inspection Lower Extremities Lower Leg Exam: Other (Patient with multiple large ulcers on bilateral lower extremities over bottom third of the [place]. 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 ) ROR Labs Reviewed 04/17/24 19:15 04/17/24 19:15 Laboratory: 04/17/24 19:00 Leg - Right Wound Gram Stain - Final 04/17/24 19:00 Leg - Left Wound Gram Stain - Final WBC 4.6 X10^3/uL (3.6-10.0) 04/17/24 19:15 RBC 4.33 X10^6/uL (4.7-6.0) L 04/17/24 19:15 Hgb 11.8 g/dL (13.5-18.0) L 04/17/24 19:15 Hct 36.5 % (42.0-54.0) L 04/17/24 19:15 MCV 84.3 fL (80.0-100.0) 04/17/24 19:15 MCH 27.3 pg (27.0-34.0) 04/17/24 19:15 MCHC 32.4 g/dL (33.0-35.0) L 04/17/24 19:15 RDW 17.4 % (11.6-16.5) H 04/17/24 19:15 Plt Count 126 X10^3/uL (150.0-450.0) L 04/17/24 19:15 MPV 8.5 fL (7.4-11.0) 04/17/24 19:15 Neut % (Auto) 68.0 % (42.0-75.0) 04/17/24 19:15 Lymph % (Auto) 16.2 % (21.0-51.0) L 04/17/24 19:15 [place] % (Auto) 7.9 % (0.0-13.0) 04/17/24 19:15 Eos % (Auto) 3.5 % (0.9-2.9) H 04/17/24 19:15 Baso % (Auto) 4.4 % (0.2-1.0) H 04/17/24 19:15 Neut # (Auto) 3.1 x10^3/uL (2.2-4.8) 04/17/24 19:15 Lymph # (Auto) 0.7 X10^3/uL (1.3-2.9) L 04/17/24 19:15 [place] # (Auto) 0.4 x10^3/uL (0.3-0.8) 04/17/24 19:15 Eos # (Auto) 0.2 x10^3/uL (0.0-0.2) 04/17/24 19:15 Baso # (Auto) 0.2 X10^3/uL (0.0-0.1) H 04/17/24 19:15 Absolute Nucleated RBC 0.1 /100WBC 04/17/24 19:15 PT 30.9 SECONDS (11.8-14.3) 04/17/24 19:15 INR Target Range - 04/17/24 19:15 INR 3.10 (0.8-1.3) H 04/17/24 19:15 D-Dimer 0.41 ug/ml (0.0-0.57) 04/17/24 19:15 Sodium 136 mmol/L (136-145) 04/17/24 19:15 Corrected Sodium TNP 04/17/24 19:15 Potassium 3.7 mmol/L (3.5-5.1) 04/17/24 19:15 Chloride 103 mmol/L (98-107) 04/17/24 19:15 Carbon Dioxide 30.1 mmol/L (21-32) 04/17/24 19:15 BUN 18 mg/dL (7-18) 04/17/24 19:15 Creatinine 0.62 mg/dL (0.70-1.30) L 04/17/24 19:15 Est GFR (MDRD) Af Amer > 60 (>60) 04/17/24 19:15 Est GFR (MDRD) Non-Af > 60 (>60) 04/17/24 19:15 Glucose 103 mg/dL (65-99) H 04/17/24 19:15 Calcium 8.5 mg/dL (8.5-10.1) 04/17/24 19:15 Corrected Calcium TNP 04/17/24 19:15 Total Bilirubin 0.70 mg/dL (0.2-1.0) 04/17/24 19:15 AST 30 Units/L (15-37) 04/17/24 19:15 ALT 23 Units/L (12-78) 04/17/24 19:15 Alkaline Phosphatase 67 Units/L (46-116) 04/17/24 19:15 C-Reactive Protein 18.10 mg/L (0-3.0) H 04/17/24 19:15 B-Natriuretic Peptide 87.7 pg/mL (0-79) H 04/17/24 19:15 Total Protein 7.1 g/dL (6.4-8.2) 04/17/24 19:15 Albumin 3.4 g/dL (3.4-5.0) 04/17/24 19:15 Globulin 3.7 g/dL (2.5-4.5) 04/17/24 19:15 Albumin/Globulin Ratio 0.9 Ratio (1.1-2.1) L 04/17/24 19:15 Opioid Opioid Risk Tool Age (Wilian box if 16-45): No History of Preadolescent Sexual Abuse: No Total: 0 Total Score Risk Category: Low Risk Copyright: Sg CABRAL predicting aberrant behaviors Discharge Plan Diagnosis Discharge Problem: Cellulitis in diabetic foot, Diabetic foot ulcer, Type 2 diabetes mellitus Discharge Plan Patient Disposition: 09 ADMITTED INPATIENT Condition: Stable Prescriptions: No Action hydrocodone-ibuprofen 7.5-200 mg tablet 1 tab PO BID carvedilol 6.25 mg tablet 3.125 mg PO BID ropinirole 1 mg tablet 1 mg PO QHS insulin glargine 100 unit/mL Solution 15 unit SUBCUT QHS warfarin 10 mg tablet 10 mg PO QHS spironolactone 25 mg tablet 25 mg PO DAILY gabapentin 300 mg capsule 300 mg PO BID montelukast 10 mg tablet 10 mg PO DAILY rosuvastatin 10 mg tablet 10 mg PO QHS dapagliflozin propanediol [Farxiga] 10 mg tablet 10 mg PO QDAY cephalexin 500 mg capsule 500 mg PO TID fluoxetine 20 mg capsule 20 mg PO QDAY insulin glargine [Lantus Solostar U-100 Insulin] 100 unit/mL (3 mL) insulin pen SUBCUT Patient Comments: [NO ORIGINAL SIG] Health Concerns: Post Hospitalization: new medications and changes needed to prevent readmission or further decline. Pt educated and given instructions on all concerns. Plan of Treatment: Continue with present treatment and follow up plan. Pt is to keep follow up appointment as instructed and take medications as ordered. Orders to Discharge Patient Discharge Orders: Transfer (Routine); Ordered 04/17/24 Ordered By: Braden Arteaga Follow ups/Referrals Follow ups/Referrals: Braden Arteaga [Primary Care Provider] - 3 days Instructions Stand Alone Forms: Post Hospital Follow Up Care
[2024-04-17] MEDS ORDERED: ZOFRAN TAB 4 MG PO PRN (22:07)
[2024-04-17] MEDS ORDERED: PHARMACY CONSULT - VANCOMYCIN XX SCH (22:07)
[2024-04-17] MEDS ORDERED: NovoLIN R (or HumuLIN R) SUBCUT PRN (22:07)
[2024-04-17 22:58] VITALS: BMI 46.5
[2024-04-17] MEDS: ZOSYN VIAL 4.5 GRAMS 4.5 G in NS 100 ML IV + SPIKE MINIBAG* 100 ML IV SCH (23:32)
[2024-04-17] MEDS: MOTRIN TAB 600 MG PO PRN (23:41)
[2024-04-18] MEDS: ZOSYN VIAL 4.5 GRAMS 4.5 G in NS 100 ML IV 100 ML IV SCH (00:57)
[2024-04-18] MEDS: NS 250 ML IV 25 ML IV PRN (00:58)
[2024-04-18 05:53] LABS: BASOPHILS # (AUTO) 0.1 X10^3/uL (0.0-0.1); BASOPHILS % (AUTO) 2.4 % (0.2-1.0); EOSINOPHILS # (AUTO) 0.2 x10^3/uL (0.0-0.2); EOSINOPHILS % (AUTO) 5.3 % (0.9-2.9); HEMATOCRIT 36.5 % (42.0-54.0); HEMOGLOBIN 11.7 g/dL (13.5-18.0); LYMPHOCYTES # (AUTO) 0.5 X10^3/uL (1.3-2.9); LYMPHOCYTES % (AUTO) 11.8 % (21.0-51.0); MEAN CORPUSCULAR HEMOGLOBIN 27.3 pg (27.0-34.0); MEAN CORPUSCULAR HGB CONC 32.1 g/dL (33.0-35.0); MEAN CORPUSCULAR VOLUME 85.2 fL (80.0-100.0); MEAN PLATELET VOLUME 8.8 fL (7.4-11.0); MONOCYTES # (AUTO) 0.5 x10^3/uL (0.3-0.8); MONOCYTES % (AUTO) 10.9 % (0.0-13.0); NEUTROPHILS % (AUTO) 69.6 % (42.0-75.0); PLATELET COUNT 113 X10^3/uL (150.0-450.0); RED BLOOD COUNT 4.28 X10^6/uL (4.7-6.0); RED CELL DISTRIBUTION WIDTH 17.2 % (11.6-16.5); WHITE BLOOD COUNT 4.3 X10^3/uL (3.6-10.0)
[2024-04-18 06:12] LABS: ALANINE AMINOTRANSFERASE 21 Units/L (12-78); ALBUMIN 3.2 g/dL (3.4-5.0); ALKALINE PHOSPHATASE 68 Units/L (46-116); ASPARTATE AMINO TRANSFERASE 23 Units/L (15-37); BLOOD UREA NITROGEN 16 mg/dL (7-18); CALCIUM 8.3 mg/dL (8.5-10.1); CARBON DIOXIDE 27.8 mmol/L (21-32); CHLORIDE 104 mmol/L (98-107); COR CA(FOR HYPOALB) 8.9 mg/dL (8.5-10.1); COR NA(FOR HYPERGLY) 139 mmol/L (136-145); GLUCOSE 125 mg/dL (65-99); MAGNESIUM 1.8 mg/dL (2.0-2.9); POTASSIUM 3.7 mmol/L (3.5-5.1); SODIUM 138 mmol/L (136-145); TOTAL PROTEIN 6.8 g/dL (6.4-8.2); eGFR NON BLACK RACES > 60 (>60)
[2024-04-18] MEDS ORDERED: CONSULT PHARMACY - POTASSIUM & MAGNESIUM XX SCH (08:00)
[2024-04-18] MEDS: VSL#3 PROBIOTIC CAP 112.5 B PO SCH (08:35)
[2024-04-18] MEDS: MAG-OX TAB PO SCH (08:35)
[2024-04-18] MEDS: VANCOMYCIN IV *PREMIX 2 G/400 ML BAG 2 G/400 ML PIGGYBACK IV SCH (08:35)
--- NOTE | 2024-04-18 09:48 | DR.H&P ---
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 He reports that symptoms recently started and was getting worse. He was recently started on Keflex for the ulcers but noted some more draining. Denies fevers, chills. Labs/imaging: WBC 4.3, hemoglobin 11.7, platelets 113, sodium 138, potassium 3.7, creatinine 0.60, glucose 125, CRP 16, wound cultures pending. Patient was admitted for bilateral diabetic ulcers of the lower extremities. Will start on IV antibiotics vancomycin and Zosyn. Restart all home medications. Will consult general surgeryDr. Santiago for further evaluation. Otherwise continue with current treatment plan. Continue closely monitor and follow-up labs in the morning. Past Medical History Past Medical History: Arthritis, Diabetes and Hypertension Past Surgical History Surgical History: CABG/Valve Surgery and Tonsillectomy Family History Family Medical History: Diabetes Mellitus, Cancer and Hypertension Social History Alcohol Use: None Drug Use: None Medications Home Medications: Home Medications Medication Instructions Recorded Confirmed Type carvedilol 6.25 mg tablet 3.125 mg PO BID 11/10/21 04/17/24 History gabapentin 300 mg capsule 300 mg PO BID 11/10/21 04/17/24 History hydrocodone 7.5 mg-ibuprofen 200 1 tab PO BID 11/10/21 04/17/24 History mg tablet insulin glargine 100 unit/mL 15 unit subcut QHS 11/10/21 12/18/23 History subcutaneous solution montelukast 10 mg tablet 10 mg PO DAILY 11/10/21 04/17/24 History ropinirole 1 mg tablet 1 mg PO QHS 11/10/21 04/17/24 History rosuvastatin 10 mg tablet 10 mg PO QHS 11/10/21 04/17/24 History spironolactone 25 mg tablet 25 mg PO DAILY 11/10/21 04/17/24 History warfarin 10 mg tablet 10 mg PO QHS 11/10/21 04/17/24 History dapagliflozin propanediol 10 mg 10 mg PO QDAY 12/18/23 04/17/24 History tablet (Farxiga) cephalexin 500 mg capsule 500 mg PO TID 04/17/24 04/17/24 History fluoxetine 20 mg capsule 20 mg PO QDAY 04/17/24 04/17/24 History insulin glargine 100 unit/mL (3 15 unit subcut HS 04/17/24 04/18/24 History mL) subcutaneous pen (Lantus Solostar U-100 Insulin) Allergies Allergies Allergy/AdvReac Type Severity Reaction Status Date / Time No Known Drug Allergies Allergy Verified 05/18/20 13:20 Labs 04/18/24 05:19 04/18/24 05:19 Labs: 04/17/24 19:00 Leg - Right Wound Gram Stain - Final 04/17/24 19:00 Leg - Left Wound Gram Stain - Final Laboratory WBC 4.3 X10^3/uL (3.6-10.0) 04/18/24 05:19 RBC 4.28 X10^6/uL (4.7-6.0) L 04/18/24 05:19 Hgb 11.7 g/dL (13.5-18.0) L 04/18/24 05:19 Hct 36.5 % (42.0-54.0) L 04/18/24 05:19 MCV 85.2 fL (80.0-100.0) 04/18/24 05:19 MCH 27.3 pg (27.0-34.0) 04/18/24 05:19 MCHC 32.1 g/dL (33.0-35.0) L 04/18/24 05:19 RDW 17.2 % (11.6-16.5) H 04/18/24 05:19 Plt Count 113 X10^3/uL (150.0-450.0) L 04/18/24 05:19 MPV 8.8 fL (7.4-11.0) 04/18/24 05:19 Neut % (Auto) 69.6 % (42.0-75.0) 04/18/24 05:19 Lymph % (Auto) 11.8 % (21.0-51.0) L 04/18/24 05:19 [place] % (Auto) 10.9 % (0.0-13.0) 04/18/24 05:19 Eos % (Auto) 5.3 % (0.9-2.9) H 04/18/24 05:19 Baso % (Auto) 2.4 % (0.2-1.0) H 04/18/24 05:19 Neut # (Auto) 3.0 x10^3/uL (2.2-4.8) 04/18/24 05:19 Lymph # (Auto) 0.5 X10^3/uL (1.3-2.9) L 04/18/24 05:19 [place] # (Auto) 0.5 x10^3/uL (0.3-0.8) 04/18/24 05:19 Eos # (Auto) 0.2 x10^3/uL (0.0-0.2) 04/18/24 05:19 Baso # (Auto) 0.1 X10^3/uL (0.0-0.1) 04/18/24 05:19 Absolute Nucleated RBC 0.0 /100WBC 04/18/24 05:19 PT 30.9 SECONDS (11.8-14.3) 04/17/24 19:15 INR Target Range - 04/17/24 19:15 INR 3.10 (0.8-1.3) H 04/17/24 19:15 D-Dimer 0.41 ug/ml (0.0-0.57) 04/17/24 19:15 Sodium 138 mmol/L (136-145) 04/18/24 05:19 Corrected Sodium 139 mmol/L (136-145) 04/18/24 05:19 Potassium 3.7 mmol/L (3.5-5.1) 04/18/24 05:19 Chloride 104 mmol/L (98-107) 04/18/24 05:19 Carbon Dioxide 27.8 mmol/L (21-32) 04/18/24 05:19 BUN 16 mg/dL (7-18) 04/18/24 05:19 Creatinine 0.60 mg/dL (0.70-1.30) L 04/18/24 05:19 Est GFR (MDRD) Af Amer > 60 (>60) 04/18/24 05:19 Est GFR (MDRD) Non-Af > 60 (>60) 04/18/24 05:19 Glucose 125 mg/dL (65-99) H 04/18/24 05:19 POC Glucose (mg/dL) 112 mg/dL (65-99) H 04/18/24 05:46 Calcium 8.3 mg/dL (8.5-10.1) L 04/18/24 05:19 Corrected Calcium 8.9 mg/dL (8.5-10.1) 04/18/24 05:19 Magnesium 1.8 mg/dL (2.0-2.9) L 04/18/24 05:19 Total Bilirubin 0.70 mg/dL (0.2-1.0) 04/18/24 05:19 AST 23 Units/L (15-37) 04/18/24 05:19 ALT 21 Units/L (12-78) 04/18/24 05:19 Alkaline Phosphatase 68 Units/L (46-116) 04/18/24 05:19 C-Reactive Protein 16.90 mg/L (0-3.0) H 04/18/24 05:19 B-Natriuretic Peptide 87.7 pg/mL (0-79) H 04/17/24 19:15 Total Protein 6.8 g/dL (6.4-8.2) 04/18/24 05:19 Albumin 3.2 g/dL (3.4-5.0) L 04/18/24 05:19 Globulin 3.6 g/dL (2.5-4.5) 04/18/24 05:19 Albumin/Globulin Ratio 0.9 Ratio (1.1-2.1) L 04/18/24 05:19 Review of Systems Constitutional: No Symptoms Reported Eyes: No Symptoms Reported ENT: No Symptoms Reported Respiratory: No Symptoms Reported Cardiovascular: No Symptoms Reported Gastrointestinal: No Symptoms Reported Genitourinary: No Symptoms Reported Musculoskeletal: No Symptoms Reported Skin: Wound (bilateral diabetic ulcers on anterior lower extremities) Neurological: No Symptoms Reported Physical Exam Vital Signs: Vital Signs Temperature 98.1 F Temperature 97.9 F Pulse Rate [Left Brachial] 103 Pulse Rate [Left Brachial] 86 Respiratory Rate 21 Respiratory Rate 22 Blood Pressure [Left Arm] 132/81 Blood Pressure [Left Arm] 113/63 O2 Sat by Pulse Oximetry 94 O2 Sat by Pulse Oximetry 95 Oriented: Normal Eyes: Normal Ear: Normal Nose: Normal Throat: Normal Respiratory: Clear Throughout Cardiovascular: Normal : Normal Auscultation: Bowel Sounds: Normal Palpation: Normal Tenderness: Normal Skin: Wound (diabetic ulcers anterior lower extremities) Musculoskeletal: Normal Psychiatric: Normal Mood Description: Calm and Appropriate Affect: Normal Speech Pattern: Clear and Appropriate Assessment/Plan (1) Diabetic ulcer of lower extremity: Status: Acute Plan: IV vancomycin and zosyn Wound culture pending Consult general surgery-Dr Santiago (2) CAD (coronary artery disease): Qualifiers: Coronary Disease-Associated Artery/Lesion type: bypass graft [place] vs. transplanted heart: [place] heart Associated angina: without angina Qualified Code(s): I25.810 - Atherosclerosis of coronary artery bypass graft(s) without angina pectoris Status: Acute (3) Type 2 diabetes mellitus: Status: Acute Review H&P Reviewed: Yes Patient was examined?: Yes
[2024-04-18] MEDS ORDERED: NORCO 7.5/325 MG TAB PO PRN (12:05)
[2024-04-18] MEDS: HYDROGEN PEROXIDE 3% ONE (12:13)
[2024-04-18] MEDS: SILVADENE ONE (12:13)
[2024-04-18] MEDS: COREG TAB 3.125 MG PO SCH (12:37)
[2024-04-18] MEDS: PROzac PO SCH (12:37)
[2024-04-18] MEDS: ALDACTONE TAB 25 MG PO SCH (12:37)
[2024-04-18] MEDS: NEURONTIN CAP 300 MG PO SCH (12:37)
[2024-04-18] MEDS: FARXIGA PO SCH (12:38)
--- NOTE | 2024-04-18 14:13 | VAS ---
EXAM: LOWER EXT VENOUS, UNILATERAL HISTORY: LEFT LEG ULCER; COMPARISON: None available. TECHNIQUE: Multiple renee scale and color flow Doppler images of the deep venous system were obtained of the righ t and left lower extremity. FINDINGS: The deep venous system of the left lower extremity was evaluated from the level of the common femoral vein through the popliteal vein. Normal color flow and augmentation can be observed. In addition, no rmal compression is seen throughout the deep venous system. IMPRESSION: Negative for DVT. THIS IS AN ELECTRONICALLY VERIFIED FINAL REPORT 04/18/2024 2:09 PM - Electronically signed by Haile Lynn MD
[2024-04-18] MEDS: SNACK - Diabetic Appropriate PO SCH (20:05)
[2024-04-18] MEDS: CRESTOR TAB 10 MG PO SCH (20:28)
[2024-04-18] MEDS: REQUIP PO SCH (20:28)
[2024-04-18] MEDS: SINGULAIR TAB 10 MG PO SCH (20:29)
[2024-04-18] MEDS: COUMADIN PO SCH (21:00)
[2024-04-19 05:16] LABS: BASOPHILS % (AUTO) 0.7 % (0.2-1.0); EOSINOPHILS # (AUTO) 0.3 x10^3/uL (0.0-0.2); EOSINOPHILS % (AUTO) 5.8 % (0.9-2.9); HEMATOCRIT 37.1 % (42.0-54.0); HEMOGLOBIN 12.1 g/dL (13.5-18.0); LYMPHOCYTES # (AUTO) 0.7 X10^3/uL (1.3-2.9); LYMPHOCYTES % (AUTO) 16.3 % (21.0-51.0); MEAN CORPUSCULAR HEMOGLOBIN 27.3 pg (27.0-34.0); MEAN CORPUSCULAR HGB CONC 32.4 g/dL (33.0-35.0); MEAN CORPUSCULAR VOLUME 84.2 fL (80.0-100.0); MEAN PLATELET VOLUME 8.6 fL (7.4-11.0); MONOCYTES # (AUTO) 0.5 x10^3/uL (0.3-0.8); MONOCYTES % (AUTO) 11.5 % (0.0-13.0); NEUTROPHILS # (AUTO) 2.9 x10^3/uL (2.2-4.8); NEUTROPHILS % (AUTO) 65.7 % (42.0-75.0); PLATELET COUNT 124 X10^3/uL (150.0-450.0); RED BLOOD COUNT 4.41 X10^6/uL (4.7-6.0); RED CELL DISTRIBUTION WIDTH 17.4 % (11.6-16.5); WHITE BLOOD COUNT 4.4 X10^3/uL (3.6-10.0)
[2024-04-19 05:28] LABS: ALANINE AMINOTRANSFERASE 19 Units/L (12-78); ALBUMIN 3.2 g/dL (3.4-5.0); ALKALINE PHOSPHATASE 68 Units/L (46-116); ASPARTATE AMINO TRANSFERASE 24 Units/L (15-37); BLOOD UREA NITROGEN 13 mg/dL (7-18); CALCIUM 8.7 mg/dL (8.5-10.1); CARBON DIOXIDE 29.4 mmol/L (21-32); CHLORIDE 103 mmol/L (98-107); COR CA(FOR HYPOALB) 9.3 mg/dL (8.5-10.1); COR NA(FOR HYPERGLY) 136 mmol/L (136-145); CREATININE 0.65 mg/dL (0.70-1.30); GLUCOSE 112 mg/dL (65-99); MAGNESIUM 1.7 mg/dL (2.0-2.9); POTASSIUM 3.8 mmol/L (3.5-5.1); SODIUM 136 mmol/L (136-145); TOTAL PROTEIN 6.9 g/dL (6.4-8.2); eGFR NON BLACK RACES > 60 (>60)
--- NOTE | 2024-04-19 14:45 | PCM.PROG ---
Progress Note Progress Note for Day of Date of Exam: 04/19/24 Subjective Subjective: The patient reports he is doing good this morning. He is resting comfortably and has no complaints of pain, insomnia or discomfort at this time. We did add the wound cultures shows that he grew out 4 different organisms. Grew Enterobacter cloacae and Klebsiella pneumoniae. They are all sensitive to Levaquin with good ORA's. I will discontinue the vancomycin and Zosyn and change him over to Levaquin 500 milligrams IV daily. We will continue his current treatment and surgery recommendations as well. Continue current treatment. Past Medical Family Social History Allergies: Allergies No Known Drug Allergies Allergy (Verified 05/18/20 13:20) Review of Systems ROS: No change since H&P Vital Signs and I&O's Vital Signs: Vital Signs Temperature 98.1 F Temperature 98.2 F Pulse Rate [Left Brachial] 88 Pulse Rate [Left Brachial] 87 Respiratory Rate 20 Respiratory Rate 21 Blood Pressure [Left Arm] 118/69 Blood Pressure [Left Arm] 128/71 O2 Sat by Pulse Oximetry 93 O2 Sat by Pulse Oximetry 94 Intake and Output: Intake & Output 04/17/24 04/18/24 04/19/24 04/20/24 11:59 11:59 11:59 11:59 Intake Total 424 / 424 1577 / 1577 Balance 424 / 424 1577 / 1577 Physical Exam Oriented: Normal Eyes: Normal Ear: Normal Nose: Normal Throat: Normal Respiratory: Normal Cardiovascular: Normal : Normal Auscultation: Bowel Sounds: Normal Tenderness: Normal Skin: Wound (diabetic ulcers anterior lower extremities) Musculoskeletal: Normal Psychiatric: Normal Mood Description: Calm and Appropriate Affect: Normal Speech Pattern: Clear and Appropriate Laboratory and Diagnostics 04/19/24 04:56 04/19/24 04:56 Labs: 04/17/24 19:00 Leg - Right Wound Gram Stain - Final 04/17/24 19:00 Leg - Right Wound Culture - Preliminary Enterobacter Cloacae Enterobacter Cloacae#2 04/17/24 19:00 Leg - Left Wound Gram Stain - Final 04/17/24 19:00 Leg - Left Wound Culture - Preliminary Enterobacter Cloacae Klebsiella Pneumoniae Laboratory WBC 4.4 X10^3/uL (3.6-10.0) 04/19/24 04:56 RBC 4.41 X10^6/uL (4.7-6.0) L 04/19/24 04:56 Hgb 12.1 g/dL (13.5-18.0) L 04/19/24 04:56 Hct 37.1 % (42.0-54.0) L 04/19/24 04:56 MCV 84.2 fL (80.0-100.0) 04/19/24 04:56 MCH 27.3 pg (27.0-34.0) 04/19/24 04:56 MCHC 32.4 g/dL (33.0-35.0) L 04/19/24 04:56 RDW 17.4 % (11.6-16.5) H 04/19/24 04:56 Plt Count 124 X10^3/uL (150.0-450.0) L 04/19/24 04:56 MPV 8.6 fL (7.4-11.0) 04/19/24 04:56 Neut % (Auto) 65.7 % (42.0-75.0) 04/19/24 04:56 Lymph % (Auto) 16.3 % (21.0-51.0) L 04/19/24 04:56 [place] % (Auto) 11.5 % (0.0-13.0) 04/19/24 04:56 Eos % (Auto) 5.8 % (0.9-2.9) H 04/19/24 04:56 Baso % (Auto) 0.7 % (0.2-1.0) 04/19/24 04:56 Neut # (Auto) 2.9 x10^3/uL (2.2-4.8) 04/19/24 04:56 Lymph # (Auto) 0.7 X10^3/uL (1.3-2.9) L 04/19/24 04:56 [place] # (Auto) 0.5 x10^3/uL (0.3-0.8) 04/19/24 04:56 Eos # (Auto) 0.3 x10^3/uL (0.0-0.2) H 04/19/24 04:56 Baso # (Auto) 0.0 X10^3/uL (0.0-0.1) 04/19/24 04:56 Absolute Nucleated RBC 0.0 /100WBC 04/19/24 04:56 PT 30.9 SECONDS (11.8-14.3) 04/17/24 19:15 INR Target Range - 04/17/24 19:15 INR 3.10 (0.8-1.3) H 04/17/24 19:15 D-Dimer 0.41 ug/ml (0.0-0.57) 04/17/24 19:15 Sodium 136 mmol/L (136-145) 04/19/24 04:56 Corrected Sodium 136 mmol/L (136-145) 04/19/24 04:56 Potassium 3.8 mmol/L (3.5-5.1) 04/19/24 04:56 Chloride 103 mmol/L (98-107) 04/19/24 04:56 Carbon Dioxide 29.4 mmol/L (21-32) 04/19/24 04:56 BUN 13 mg/dL (7-18) 04/19/24 04:56 Creatinine 0.65 mg/dL (0.70-1.30) L 04/19/24 04:56 Est GFR (MDRD) Af Amer > 60 (>60) 04/19/24 04:56 Est GFR (MDRD) Non-Af > 60 (>60) 04/19/24 04:56 Glucose 112 mg/dL (65-99) H 04/19/24 04:56 POC Glucose (mg/dL) 127 mg/dL (65-99) H 04/19/24 11:16 Calcium 8.7 mg/dL (8.5-10.1) 04/19/24 04:56 Corrected Calcium 9.3 mg/dL (8.5-10.1) 04/19/24 04:56 Magnesium 1.7 mg/dL (2.0-2.9) L 04/19/24 04:56 Total Bilirubin 0.80 mg/dL (0.2-1.0) 04/19/24 04:56 AST 24 Units/L (15-37) 04/19/24 04:56 ALT 19 Units/L (12-78) 04/19/24 04:56 Alkaline Phosphatase 68 Units/L (46-116) 04/19/24 04:56 C-Reactive Protein 16.90 mg/L (0-3.0) H 04/18/24 05:19 B-Natriuretic Peptide 87.7 pg/mL (0-79) H 04/17/24 19:15 Total Protein 6.9 g/dL (6.4-8.2) 04/19/24 04:56 Albumin 3.2 g/dL (3.4-5.0) L 04/19/24 04:56 Globulin 3.7 g/dL (2.5-4.5) 04/19/24 04:56 Albumin/Globulin Ratio 0.9 Ratio (1.1-2.1) L 04/19/24 04:56 Plan (1) Diabetic ulcer of lower extremity: Status: Acute Plan: IV vancomycin and zosyn Wound culture shows Enterobacter cloacae and Klebsiella pneumoniae. All sensitive to Levaquin with good ORA's Consult general surgery-Dr Santiago (2) CAD (coronary artery disease): Status: Acute Qualifiers: Coronary Disease-Associated Artery/Lesion type: bypass graft [place] vs. transplanted heart: [place] heart Associated angina: without angina Qualified Code(s): I25.810 - Atherosclerosis of coronary artery bypass graft(s) without an hermelinda pectoris Plan: Discontinue IV vancomycin and Zosyn. Start IV Levaquin 500 mg daily. (3) Type 2 diabetes mellitus: Status: Acute
[2024-04-19] MEDS: LEVAQUIN PREMIX IV 500 MG 500 MG/100 ML BAG IV SCH (15:03)
[2024-04-19] MEDS ORDERED: CONSULT PHARMACY - POTASSIUM & MAGNESIUM XX SCH (19:00)
[2024-04-19] MEDS: MAG-OX TAB PO SCH (20:05)
[2024-04-19] MEDS ORDERED: PHARMACY COMMENT IV ONE (20:30)
[2024-04-20 05:25] LABS: EOSINOPHILS # (AUTO) 0.3 x10^3/uL (0.0-0.2); EOSINOPHILS % (AUTO) 5.2 % (0.9-2.9); HEMATOCRIT 39.1 % (42.0-54.0); HEMOGLOBIN 12.8 g/dL (13.5-18.0); LYMPHOCYTES # (AUTO) 0.7 X10^3/uL (1.3-2.9); LYMPHOCYTES % (AUTO) 14.4 % (21.0-51.0); MEAN CORPUSCULAR HEMOGLOBIN 27.4 pg (27.0-34.0); MEAN CORPUSCULAR HGB CONC 32.7 g/dL (33.0-35.0); MEAN CORPUSCULAR VOLUME 83.8 fL (80.0-100.0); MEAN PLATELET VOLUME 8.6 fL (7.4-11.0); MONOCYTES # (AUTO) 0.6 x10^3/uL (0.3-0.8); MONOCYTES % (AUTO) 11.4 % (0.0-13.0); NEUTROPHILS # (AUTO) 3.3 x10^3/uL (2.2-4.8); PLATELET COUNT 126 X10^3/uL (150.0-450.0); RED BLOOD COUNT 4.67 X10^6/uL (4.7-6.0); WHITE BLOOD COUNT 4.9 X10^3/uL (3.6-10.0)
[2024-04-20 06:02] LABS: ALANINE AMINOTRANSFERASE 19 Units/L (12-78); ALBUMIN 3.2 g/dL (3.4-5.0); ALKALINE PHOSPHATASE 68 Units/L (46-116); ASPARTATE AMINO TRANSFERASE 22 Units/L (15-37); BLOOD UREA NITROGEN 14 mg/dL (7-18); CALCIUM 8.7 mg/dL (8.5-10.1); CHLORIDE 100 mmol/L (98-107); COR CA(FOR HYPOALB) 9.3 mg/dL (8.5-10.1); COR NA(FOR HYPERGLY) 136 mmol/L (136-145); CREATININE 0.63 mg/dL (0.70-1.30); GLUCOSE 114 mg/dL (65-99); POTASSIUM 3.6 mmol/L (3.5-5.1); SODIUM 136 mmol/L (136-145); TOTAL PROTEIN 7.1 g/dL (6.4-8.2); eGFR NON BLACK RACES > 60 (>60)
[2024-04-20] MEDS ORDERED: CONSULT PHARMACY - POTASSIUM & MAGNESIUM XX SCH (07:00)
[2024-04-20] MEDS ORDERED: LEVAQUIN PREMIX IV 500 MG 500 MG/100 ML BAG IV SCH (09:00)
[2024-04-20] MEDS: MAG-OX TAB PO SCH ×2 (09:26→09:27)
[2024-04-20] MEDS: K-DUR TAB 20 MEQ PO SCH (09:26)
--- NOTE | 2024-04-20 15:41 | PCM.PROG ---
Progress Note Progress Note for Day of Date of Exam: 04/20/24 Subjective Subjective: The patient reports he is doing good this morning. He is resting comfortably and has no complaints of pain, insomnia or discomfort at this time. We did add the wound cultures shows that he grew out 4 different organisms. The cultures grew out Enterobacter cloacae x 3 several organisms and Klebsiella pneumoniae. They are all sensitive to Levaquin with good ORA's. I will discontinue the vancomycin and Zosyn and change him over to Levaquin 500 milligrams IV daily. We will continue his current treatment and surgery recommendations as well. Continue current treatment. I informed the patient that he has less redness around the edges of the cellulitis compared to yesterday and that it has shown improvement since changing his antibiotics to the Levaquin. Past Medical Family Social History Allergies: Allergies No Known Drug Allergies Allergy (Verified 05/18/20 13:20) Review of Systems ROS: No change since H&P Vital Signs and I&O's Vital Signs: Vital Signs Temperature 98.9 F Temperature 98.1 F Pulse Rate [Left Brachial] 85 Pulse Rate [Left Brachial] 87 Respiratory Rate 20 Respiratory Rate 19 Blood Pressure [Left Arm] 118/71 Blood Pressure [Left Arm] 124/71 O2 Sat by Pulse Oximetry 95 O2 Sat by Pulse Oximetry 90 Intake and Output: Intake & Output 04/18/24 04/19/24 04/20/24 04/21/24 11:59 11:59 11:59 11:59 Intake Total 424 / 424 1577 / 1577 2690 / 2690 100 / 100 Balance 424 / 424 1577 / 1577 2690 / 2690 100 / 100 Physical Exam Oriented: Normal Eyes: Normal Ear: Normal Nose: Normal Throat: Normal Respiratory: Normal Cardiovascular: Normal : Normal Auscultation: Bowel Sounds: Normal Tenderness: Normal Skin: Wound (diabetic ulcers anterior lower extremities) Musculoskeletal: Normal Psychiatric: Normal Mood Description: Calm and Appropriate Affect: Normal Speech Pattern: Clear and Appropriate Laboratory and Diagnostics 04/20/24 05:08 04/20/24 05:08 Labs: 04/17/24 19:00 Leg - Left Wound Gram Stain - Final 04/17/24 19:00 Leg - Left Wound Culture - Preliminary Enterobacter Cloacae Klebsiella Pneumoniae 04/17/24 19:00 Leg - Right Wound Gram Stain - Final 04/17/24 19:00 Leg - Right Wound Culture - Final Enterobacter Cloacae Enterobacter Cloacae#2 Escherichia Coli Laboratory WBC 4.9 X10^3/uL (3.6-10.0) 04/20/24 05:08 RBC 4.67 X10^6/uL (4.7-6.0) L 04/20/24 05:08 Hgb 12.8 g/dL (13.5-18.0) L 04/20/24 05:08 Hct 39.1 % (42.0-54.0) L 04/20/24 05:08 MCV 83.8 fL (80.0-100.0) 04/20/24 05:08 MCH 27.4 pg (27.0-34.0) 04/20/24 05:08 MCHC 32.7 g/dL (33.0-35.0) L 04/20/24 05:08 RDW 17.0 % (11.6-16.5) H 04/20/24 05:08 Plt Count 126 X10^3/uL (150.0-450.0) L 04/20/24 05:08 MPV 8.6 fL (7.4-11.0) 04/20/24 05:08 Neut % (Auto) 68.0 % (42.0-75.0) 04/20/24 05:08 Lymph % (Auto) 14.4 % (21.0-51.0) L 04/20/24 05:08 [place] % (Auto) 11.4 % (0.0-13.0) 04/20/24 05:08 Eos % (Auto) 5.2 % (0.9-2.9) H 04/20/24 05:08 Baso % (Auto) 1.0 % (0.2-1.0) 04/20/24 05:08 Neut # (Auto) 3.3 x10^3/uL (2.2-4.8) 04/20/24 05:08 Lymph # (Auto) 0.7 X10^3/uL (1.3-2.9) L 04/20/24 05:08 [place] # (Auto) 0.6 x10^3/uL (0.3-0.8) 04/20/24 05:08 Eos # (Auto) 0.3 x10^3/uL (0.0-0.2) H 04/20/24 05:08 Baso # (Auto) 0.0 X10^3/uL (0.0-0.1) 04/20/24 05:08 Absolute Nucleated RBC 0.0 /100WBC 04/20/24 05:08 PT 30.9 SECONDS (11.8-14.3) 04/17/24 19:15 INR Target Range - 04/17/24 19:15 INR 3.10 (0.8-1.3) H 04/17/24 19:15 D-Dimer 0.41 ug/ml (0.0-0.57) 04/17/24 19:15 Sodium 136 mmol/L (136-145) 04/20/24 05:08 Corrected Sodium 136 mmol/L (136-145) 04/20/24 05:08 Potassium 3.6 mmol/L (3.5-5.1) 04/20/24 05:08 Chloride 100 mmol/L (98-107) 04/20/24 05:08 Carbon Dioxide 32.0 mmol/L (21-32) 04/20/24 05:08 BUN 14 mg/dL (7-18) 04/20/24 05:08 Creatinine 0.63 mg/dL (0.70-1.30) L 04/20/24 05:08 Est GFR (MDRD) Af Amer > 60 (>60) 04/20/24 05:08 Est GFR (MDRD) Non-Af > 60 (>60) 04/20/24 05:08 Glucose 114 mg/dL (65-99) H 04/20/24 05:08 POC Glucose (mg/dL) 132 mg/dL (65-99) H 04/20/24 11:25 Calcium 8.7 mg/dL (8.5-10.1) 04/20/24 05:08 Corrected Calcium 9.3 mg/dL (8.5-10.1) 04/20/24 05:08 Magnesium 1.8 mg/dL (2.0-2.9) L 04/20/24 05:08 Total Bilirubin 0.70 mg/dL (0.2-1.0) 04/20/24 05:08 AST 22 Units/L (15-37) 04/20/24 05:08 ALT 19 Units/L (12-78) 04/20/24 05:08 Alkaline Phosphatase 68 Units/L (46-116) 04/20/24 05:08 C-Reactive Protein 16.90 mg/L (0-3.0) H 04/18/24 05:19 B-Natriuretic Peptide 87.7 pg/mL (0-79) H 04/17/24 19:15 Total Protein 7.1 g/dL (6.4-8.2) 04/20/24 05:08 Albumin 3.2 g/dL (3.4-5.0) L 04/20/24 05:08 Globulin 3.9 g/dL (2.5-4.5) 04/20/24 05:08 Albumin/Globulin Ratio 0.8 Ratio (1.1-2.1) L 04/20/24 05:08 Plan (1) Diabetic ulcer of lower extremity: Status: Acute Plan: IV vancomycin and zosyn Wound culture shows Enterobacter cloacae and Klebsiella pneumoniae. All sensitive to Levaquin with good ORA's Consult general surgery-Dr Santiago (2) CAD (coronary artery disease): Status: Acute Qualifiers: Coronary Disease-Associated Artery/Lesion type: bypass graft [place] vs. transplanted heart: [place] heart Associated angina: without angina Qualified Code(s): I25.810 - Atherosclerosis of coronary artery bypass graft(s) without angina pectoris Plan: Discontinue IV vancomycin and Zosyn. Start IV Levaquin 500 mg daily. (3) Type 2 diabetes mellitus: Status: Acute
[2024-04-20 21:41] VITALS: O2SAT 97
[2024-04-21 05:17] LABS: EOSINOPHILS # (AUTO) 0.3 x10^3/uL (0.0-0.2); EOSINOPHILS % (AUTO) 5.6 % (0.9-2.9); HEMATOCRIT 41.8 % (42.0-54.0); HEMOGLOBIN 13.5 g/dL (13.5-18.0); LYMPHOCYTES % (AUTO) 20.4 % (21.0-51.0); MEAN CORPUSCULAR HEMOGLOBIN 27.4 pg (27.0-34.0); MEAN CORPUSCULAR HGB CONC 32.3 g/dL (33.0-35.0); MEAN CORPUSCULAR VOLUME 84.9 fL (80.0-100.0); MEAN PLATELET VOLUME 8.9 fL (7.4-11.0); MONOCYTES # (AUTO) 0.6 x10^3/uL (0.3-0.8); MONOCYTES % (AUTO) 12.3 % (0.0-13.0); NEUTROPHILS # (AUTO) 2.9 x10^3/uL (2.2-4.8); NEUTROPHILS % (AUTO) 60.7 % (42.0-75.0); PLATELET COUNT 136 X10^3/uL (150.0-450.0); RED BLOOD COUNT 4.92 X10^6/uL (4.7-6.0); RED CELL DISTRIBUTION WIDTH 16.9 % (11.6-16.5); WHITE BLOOD COUNT 4.7 X10^3/uL (3.6-10.0)
[2024-04-21 05:47] LABS: ALANINE AMINOTRANSFERASE 23 Units/L (12-78); ALBUMIN 3.4 g/dL (3.4-5.0); ALKALINE PHOSPHATASE 73 Units/L (46-116); ASPARTATE AMINO TRANSFERASE 30 Units/L (15-37); BLOOD UREA NITROGEN 15 mg/dL (7-18); CALCIUM 8.7 mg/dL (8.5-10.1); CARBON DIOXIDE 30.2 mmol/L (21-32); CHLORIDE 100 mmol/L (98-107); COR NA(FOR HYPERGLY) 136 mmol/L (136-145); CREATININE 0.59 mg/dL (0.70-1.30); GLUCOSE 126 mg/dL (65-99); POTASSIUM 3.7 mmol/L (3.5-5.1); SODIUM 135 mmol/L (136-145); TOTAL PROTEIN 7.3 g/dL (6.4-8.2); eGFR NON BLACK RACES > 60 (>60)
[2024-04-21] MEDS ORDERED: CONSULT PHARMACY - POTASSIUM & MAGNESIUM XX SCH (07:00)
[2024-04-21 07:26] LABS: INR 2.18 (0.8-1.3)
[2024-04-21 08:03] VITALS: RESP 20
[2024-04-21] MEDS: K-DUR TAB 20 MEQ PO SCH (09:46)
[2024-04-21 11:24] VITALS: BP 129/76; PULSE 90; TEMP 98.3
--- NOTE | 2024-04-22 10:18 | W.DIS.FURT ---
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 He has b/l LE open diabetic ulcers with drainage. He was being treated outpatient with Keflex but continued to have worsening redness and more drainage. ER work up showed anemia, wbc was normal. He was started on IV fluids and IV antibiotics. Wound cx were collected. His labs were monitored daily and electrolytes replaced as needed. Dr Cabrera was also consulted, no surgical debridement advised at this time. His wound cx grew out Enterobacter cloacae and E.coli. He was switched to levaquin. His legs appeared to be getting better, erythema improved. He was stable for discharge on PO abx. He will f/u with PCP and Dr Cabrera as scheduled. Vital Signs: Vital Signs (72 hours) 04/18/24 12:00 04/18/24 16:00 04/18/24 19:00 Temperature 98.1 F 98.3 F Pulse Rate [Left Brachial] 88 92 H Respiratory Rate 21 20 Blood Pressure [Left Arm] 111/61 129/83 O2 Sat by Pulse Oximetry 95 96 Oxygen Delivery Method Room Air Room Air Room Air FIO2% 21 04/18/24 20:00 04/19/24 00:00 04/19/24 04:00 Temperature 98.1 F 98.2 F 98 F Pulse Rate [Left Brachial] 86 86 87 Respiratory Rate 18 18 20 Blood Pressure [Left Arm] 112/60 108/63 123/76 O2 Sat by Pulse Oximetry 95 98 95 Oxygen Delivery Method Room Air Room Air Room Air FIO2% 04/19/24 07:53 04/19/24 07:00 04/19/24 12:00 Temperature 98.2 F 98.1 F Pulse Rate [Left Brachial] 87 88 Respiratory Rate 21 20 Blood Pressure [Left Arm] 128/71 118/69 O2 Sat by Pulse Oximetry 94 L 93 L Oxygen Delivery Method Room Air Room Air Room Air FIO2% 21 04/19/24 16:00 04/19/24 20:00 04/19/24 19:00 Temperature 98.2 F 98.1 F Pulse Rate [Left Brachial] 87 88 Respiratory Rate 20 21 Blood Pressure [Left Arm] 121/76 120/61 O2 Sat by Pulse Oximetry 90 L 92 L Oxygen Delivery Method Room Air Room Air Room Air FIO2% 04/20/24 00:00 04/20/24 04:00 04/20/24 07:41 Temperature 98.2 F 98.3 F 98.1 F Pulse Rate [Left Brachial] 87 94 H 87 Respiratory Rate 20 19 19 Blood Pressure [Left Arm] 138/76 131/73 124/71 O2 Sat by Pulse Oximetry 96 97 90 L Oxygen Delivery Method Room Air Room Air Room Air FIO2% 04/20/24 07:00 04/20/24 11:47 04/20/24 16:00 Temperature 98.9 F 97.6 F Pulse Rate [Left Brachial] 85 87 Respiratory Rate 20 19 Blood Pressure [Left Arm] 118/71 96/51 O2 Sat by Pulse Oximetry 95 94 L Oxygen Delivery Method Room Air Room Air Room Air FIO2% 04/20/24 19:00 04/20/24 20:00 04/21/24 00:00 Temperature 98.3 F 98.2 F Pulse Rate [Left Brachial] 86 86 Respiratory Rate 20 18 Blood Pressure [Left Arm] 119/66 123/69 O2 Sat by Pulse Oximetry 97 97 Oxygen Delivery Method Room Air Room Air Room Air FIO2% 04/21/24 04:00 04/21/24 08:00 04/21/24 07:00 Temperature 98.1 F 98.2 F Pulse Rate [Left Brachial] 88 88 Respiratory Rate 19 20 Blood Pressure [Left Arm] 109/57 107/66 O2 Sat by Pulse Oximetry Oxygen Delivery Method Room Air Room Air Room Air FIO2% Labs: Laboratory Last Values WBC 4.7 X10^3/uL (3.6-10.0) 04/21/24 04:39 RBC 4.92 X10^6/uL (4.7-6.0) 04/21/24 04:39 Hgb 13.5 g/dL (13.5-18.0) 04/21/24 04:39 Hct 41.8 % (42.0-54.0) L 04/21/24 04:39 MCV 84.9 fL (80.0-100.0) 04/21/24 04:39 MCH 27.4 pg (27.0-34.0) 04/21/24 04:39 MCHC 32.3 g/dL (33.0-35.0) L 04/21/24 04:39 RDW 16.9 % (11.6-16.5) H 04/21/24 04:39 Plt Count 136 X10^3/uL (150.0-450.0) L 04/21/24 04:39 MPV 8.9 fL (7.4-11.0) 04/21/24 04:39 Neut % (Auto) 60.7 % (42.0-75.0) 04/21/24 04:39 Lymph % (Auto) 20.4 % (21.0-51.0) L 04/21/24 04:39 [place] % (Auto) 12.3 % (0.0-13.0) 04/21/24 04:39 Eos % (Auto) 5.6 % (0.9-2.9) H 04/21/24 04:39 Baso % (Auto) 1.0 % (0.2-1.0) 04/21/24 04:39 Neut # (Auto) 2.9 x10^3/uL (2.2-4.8) 04/21/24 04:39 Lymph # (Auto) 1.0 X10^3/uL (1.3-2.9) L 04/21/24 04:39 [place] # (Auto) 0.6 x10^3/uL (0.3-0.8) 04/21/24 04:39 Eos # (Auto) 0.3 x10^3/uL (0.0-0.2) H 04/21/24 04:39 Baso # (Auto) 0.0 X10^3/uL (0.0-0.1) 04/21/24 04:39 Absolute Nucleated RBC 0.1 /100WBC 04/21/24 04:39 PT 23.6 SECONDS (11.8-14.3) 04/21/24 04:39 INR Target Range - 04/21/24 04:39 INR 2.18 (0.8-1.3) H 04/21/24 04:39 D-Dimer 0.41 ug/ml (0.0-0.57) 04/17/24 19:15 Sodium 135 mmol/L (136-145) L 04/21/24 04:39 Corrected Sodium 136 mmol/L (136-145) 04/21/24 04:39 Potassium 3.7 mmol/L (3.5-5.1) 04/21/24 04:39 Chloride 100 mmol/L (98-107) 04/21/24 04:39 Carbon Dioxide 30.2 mmol/L (21-32) 04/21/24 04:39 BUN 15 mg/dL (7-18) 04/21/24 04:39 Creatinine 0.59 mg/dL (0.70-1.30) L 04/21/24 04:39 Est GFR (MDRD) Af Amer > 60 (>60) 04/21/24 04:39 Est GFR (MDRD) Non-Af > 60 (>60) 04/21/24 04:39 Glucose 126 mg/dL (65-99) H 04/21/24 04:39 POC Glucose (mg/dL) 123 mg/dL (65-99) H 04/21/24 05:45 Calcium 8.7 mg/dL (8.5-10.1) 04/21/24 04:39 Corrected Calcium TNP 04/21/24 04:39 Magnesium 2.0 mg/dL (2.0-2.9) 04/21/24 04:39 Total Bilirubin 0.60 mg/dL (0.2-1.0) 04/21/24 04:39 AST 30 Units/L (15-37) 04/21/24 04:39 ALT 23 Units/L (12-78) 04/21/24 04:39 Alkaline Phosphatase 73 Units/L (46-116) 04/21/24 04:39 C-Reactive Protein 16.90 mg/L (0-3.0) H 04/18/24 05:19 B-Natriuretic Peptide 87.7 pg/mL (0-79) H 04/17/24 19:15 Total Protein 7.3 g/dL (6.4-8.2) 04/21/24 04:39 Albumin 3.4 g/dL (3.4-5.0) 04/21/24 04:39 Globulin 3.9 g/dL (2.5-4.5) 04/21/24 04:39 Albumin/Globulin Ratio 0.9 Ratio (1.1-2.1) L 04/21/24 04:39 Reason For Visit: BILAT CELLULITIS,LE, DIABETIC ULCERS Discharge Diagnosis All Active Problems (Updated 04/18/24 @ 09:46 by Jeet Bender MD) Diabetic ulcer of lower extremity (Acute) Anemia (Acute) CAD (coronary artery disease) (Acute) Heart valve replaced (Acute) Type 2 diabetes mellitus (Acute) Cellulitis in diabetic foot (Acute) Diabetic foot ulcer (Acute) Chronic ulcer of right foot (Acute) Cast removal (Acute) Hypokalemia (Acute) Ulcer (Acute) Hyperglycemia (Acute) Cellulitis (Acute) Hydrocele (Acute) Acute orchitis (Acute) Leukocytosis (Acute) Bleeding from varicose veins of left lower extremity (Acute) Bleeding from varicose veins of left lower extremity (Acute) Hemorrhage, petechial (Acute) Varicose veins of left leg with edema (Acute) Plan of Treatment: Continue with present treatment and follow up plan. Pt is to keep follow up appointment as instructed and take medications as ordered. Discharge Medications Discharge Medications: No Known Drug Allergies Allergy (Verified 05/18/20 13:20) CONTINUE taking the following medications cephalexin 500 mg capsule 500 mg PO TID 04/17/24 [History] fluoxetine 20 mg capsule 20 mg PO QDAY 04/17/24 [History] insulin glargine 100 unit/mL (3 mL) subcutaneous pen (Lantus Solostar U-100 Insulin) 15 unit subcut HS 04/17/24 [History] hydrocodone 7.5 mg-acetaminophen 325 mg tablet 1 tab PO BID PRN 04/18/24 [History] New Prescriptions levofloxacin 500 mg tablet 500 mg PO QDAY 7 days #7 tabs 04/21/24 [Rx] Discharge Disposition Assessment: No distress noted. 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 He has b/l LE open diabetic ulcers with drainage. He was being treated outpatient with Keflex but continued to have worsening redness and more drainage. ER work up showed anemia, wbc was normal. H rosibel was started on IV fluids and IV antibiotics. Wound cx were collected. His labs were monitored daily and electrolytes replaced as needed. Dr Cabrera was also consulted, no surgical debridement advised at this time. His wound cx grew out Enterobacter cloacae and E.coli. He was switched to levaquin. His legs appeared to be getting better, erythema improved. He was stable for discharge on PO abx. He will f/u with PCP and Dr Cabrera as scheduled. Patient Disposition: 01 HOME, SELF-CARE Condition: Stable Health Concerns: Post Hospitalization: new medications and changes needed to prevent readmission or further decline. Pt educated and given instructions on all concerns. Care Plan Goals: Problem: Infection Goal: Temperature within normal limits. Resolved infection. Instructions: Follow provided instructions. Follow up with primary physician as directed. Contact primary care physician or report to the closest Emergency Room if condition worsens. Plan of Treatment: Continue with present treatment and follow up plan. Pt is to keep follow up appointment as instructed and take medications as ordered. Assessment: No distress noted. Prescription drug monitoring program results: PDMP reviewed and no concerns identified Prescriptions: New levofloxacin 500 mg tablet 500 mg PO QDAY 7 Days Qty: 7 0RF silver sulfadiazine 1 % Cream 1 applic TOPICAL QDAY Qty: 50 0RF Rx Instructions: apply a 1.5 mm thickness Continued hydrocodone-ibuprofen 7.5-200 mg tablet 1 tab PO BID carvedilol 6.25 mg tablet 3.125 mg PO BID ropinirole 1 mg tablet 1 mg PO QHS warfarin 10 mg tablet 10 mg PO QHS spironolactone 25 mg tablet 25 mg PO DAILY gabapentin 300 mg capsule 300 mg PO BID montelukast 10 mg tablet 10 mg PO DAILY rosuvastatin 10 mg tablet 10 mg PO QHS dapagliflozin propanediol [Farxiga] 10 mg tablet 10 mg PO QDAY fluoxetine 20 mg capsule 20 mg PO QDAY insulin glargine [Lantus Solostar U-100 Insulin] 100 unit/mL (3 mL) insulin pen 15 unit SUBCUT HS Patient Comments: [NO ORIGINAL SIG] hydrocodone-acetaminophen 7.5-325 mg tablet 1 tab PO BID PRN Discontinued cephalexin 500 mg capsule 500 mg PO TID Orders to Discharge Patient Discharge Orders: Discharge (Routine); Ordered 04/21/24 Ordered By: Jasmine Stiles Follow ups/Referrals Follow ups/Referrals: VALENTINA AMAYA [STAFF PHYSICIAN] - 05/06/24 11:20 am Instructions Instructions: Cellulitis, Adult, Jegh-by-Lvnw, Blood Glucose Monitoring, Adult Activity Restrictions/Additional Instructions: Change dressing daily. Clean wound with peroxide and normal saline. Apply Silvadene cream to wound. Cover wound with telfa pad and 4X4 gauze Wrap with kerlix Stand Alone Forms: Excuse From Work or School, Post Hospital Follow Up Care
== END 2024-04-21 12:15 | disposition home or self-care (01) ==
LOC: ER 18:12 → MED/SURG 18:12
PROVIDERS: ADMIT Obstetrics & Gynecology Obstetrics; ATTEND Internal Medicine
DX: I87.2 Venous insufficiency (chronic) (peripheral); B96.1 Klebsiella pneumoniae [K. pneumoniae] as the cause of diseases classified elsewhere; E11.622 Type 2 diabetes mellitus with other skin ulcer; L97.918 Non-pressure chronic ulcer of unspecified part of right lower leg with other specified severity; Z16.12 Extended spectrum beta lactamase (ESBL) resistance; R79.82 Elevated C-reactive protein (CRP); Z68.41 Body mass index [BMI] 40.0-44.9, adult; I10 Essential (primary) hypertension; L03.116 Cellulitis of left lower limb; B95.7 Other staphylococcus as the cause of diseases classified elsewhere; L03.115 Cellulitis of right lower limb; I25.810 Atherosclerosis of coronary artery bypass graft(s) without angina pectoris; E66.01 Morbid (severe) obesity due to excess calories; E83.42 Hypomagnesemia; E11.65 Type 2 diabetes mellitus with hyperglycemia; Z16.23 Resistance to quinolones and fluoroquinolones; Z16.11 Resistance to penicillins; Z16.13 Resistance to carbapenem; B96.89 Other specified bacterial agents as the cause of diseases classified elsewhere; L97.928 Non-pressure chronic ulcer of unspecified part of left lower leg with other specified severity; R79.1 Abnormal coagulation profile; Z16.29 Resistance to other single specified antibiotic; Z16.19 Resistance to other specified beta lactam antibiotics; B96.29 Other Escherichia coli [E. coli] as the cause of diseases classified elsewhere

== ENCOUNTER 2024-09-23 12:03 | Inpatient (IN) ==
[2024-09-23 12:35] VITALS: BMI 49.6
--- NOTE | 2024-09-23 13:46 | EKG ---
Test Reason : dyspnea Blood Pressure : */* mmHG Vent. Rate : 108 BPM Atrial Rate : * BPM P-R Int : * ms QRS Dur : 162 ms QT Int : 394 ms P-R-T Axes : * 51 137 degrees QTc Int : 527 ms Atrial fibrillation with rapid ventricular response with premature ventricular or aberrantly conducte d complexes Left bundle branch block Abnormal ECG When compared with ECG of 28-MAY-2024 11:46, Atrial fibrillation has replaced Sinus rhythm Vent. rate has increased BY 38 BPM Left bundle branch block is now present Borderline criteria for Lateral infarct are no longer present Confirmed by Bill Hope MD ([id number]) on 09/23/2024 2:23:09 PM Referred By: Confirmed By: Bill Hope MD
[2024-09-23 13:51] LABS: BASOPHILS # (AUTO) 0.1 X10^3/uL (0.0-0.1); BASOPHILS % (AUTO) 2.2 % (0.2-1.0); EOSINOPHILS # (AUTO) 0.1 x10^3/uL (0.0-0.2); EOSINOPHILS % (AUTO) 2.7 % (0.9-2.9); HEMATOCRIT 40.1 % (42.0-54.0); LYMPHOCYTES # (AUTO) 0.8 X10^3/uL (1.3-2.9); LYMPHOCYTES % (AUTO) 19.1 % (21.0-51.0); MEAN CORPUSCULAR HEMOGLOBIN 28.5 pg (27.0-34.0); MEAN CORPUSCULAR HGB CONC 32.4 g/dL (33.0-35.0); MEAN PLATELET VOLUME 8.3 fL (7.4-11.0); MONOCYTES # (AUTO) 0.4 x10^3/uL (0.3-0.8); MONOCYTES % (AUTO) 9.9 % (0.0-13.0); NEUTROPHILS # (AUTO) 2.9 x10^3/uL (2.2-4.8); NEUTROPHILS % (AUTO) 66.1 % (42.0-75.0); PLATELET COUNT 125 X10^3/uL (150.0-450.0); RED BLOOD COUNT 4.55 X10^6/uL (4.7-6.0); RED CELL DISTRIBUTION WIDTH 17.2 % (11.6-16.5); WHITE BLOOD COUNT 4.4 X10^3/uL (3.6-10.0)
[2024-09-23] MEDS: LASIX IVP ONE (13:52)
--- NOTE | 2024-09-23 14:09 | RAD ---
EXAM:CHEST, 1 VIEWHISTORY:SHORTNESS OF BREATH;COMPARISON:Prior study or studies were utilized for comparison during interpretation with the most relevant dated 05/28/2020TECHNIQUE:CHEST, 1 VIEWFINDINGS:Chest:Lines and tubes: Cardiac leads overlie the chest.Mediastinum: Cardiomegaly.Pulmonary vessels: There is pulmonary vascular congestion.Lung armstrong: Patchy opacities are seenPleura: No effusion. No pneumothorax.Bones and soft tissues: No acute osseous or soft tissue abnormality.IMPRESSION:1. Findings suggest heart failureTHIS IS AN ELECTRONICALLY VERIFIED FINAL REPORT09/23/2024 2:06 PM - Electronically signed by David Adam MD
[2024-09-23 14:11] LABS: ALANINE AMINOTRANSFERASE 23 Units/L (12-78); ALBUMIN 3.3 g/dL (3.4-5.0); ALKALINE PHOSPHATASE 76 Units/L (46-116); ASPARTATE AMINO TRANSFERASE 30 Units/L (15-37); BLOOD UREA NITROGEN 16 mg/dL (7-18); CARBON DIOXIDE 32.7 mmol/L (21-32); CHLORIDE 103 mmol/L (98-107); COR CA(FOR HYPOALB) 9.6 mg/dL (8.5-10.1); COR NA(FOR HYPERGLY) 143 mmol/L (136-145); CREATINE KINASE 129 Units/L (39-308); CREATININE 0.79 mg/dL (0.70-1.30); GLUCOSE 174 mg/dL (65-99); MAGNESIUM 2.1 mg/dL (2.0-2.9); POTASSIUM 4.1 mmol/L (3.5-5.1); SODIUM 141 mmol/L (136-145); TOTAL PROTEIN 7.2 g/dL (6.4-8.2); eGFR NON BLACK RACES > 60 (>60)
--- NOTE | 2024-09-23 14:27 | DR.EXTPAIN ---
HPI Time seen Time Seen by Provider: 09/23/24 13:06 PCP Primary Care Physician: Dr. 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 States he has been taking lasix 40 mg BID. Admits to orthopnea and dyspnea with exertion. Denies CP. Chief Complaint:: Patient states that he has been swelling and retaining water for around a week now. He went to his primary around this time and he was prescribed Lasix 40mg bid. He has taken the medication as prescribed but he has continued to swell. He went to see Dr. Zepeda again and they told him that he had to be admitted, but told the patient that they could not direct admit. They told them to come to the ER for admission. Patient states that he has had difficulty walking due to the swelling and states that he gets short of breath. The swelling is in his abdomen as well as his lower extremities. He also states that his right leg is leaking fluid. COVID-19 Coronavirus risk:travel/contact w/high risk person: No Has patient experienced Coronavirus symptoms: No Source History Provided: Patient Mode of arrival Mode of Arrival: Ambulatory Timing Onset of Chief Complaint: 09/14/24 PMH PMH Past Medical History: Yes Past Medical History: Arthritis, Diabetes and Hypertension Past Surgical History: Yes Surgical History: CABG/Valve Surgery and Tonsillectomy Family History History of Family Medical Conditions: Yes Family Medical History: Diabetes Mellitus, Cancer and Hypertension Social History Does patient currently use any type of tobacco product: No Have you used tobacco products in the last 12 months: No Type of Tobacco Use: None Does any household member use tobacco: No Alcohol Use: None Do you use any recreational Drugs:: No Lives With: Family Lives Where: Home Travel Risk Coronavirus risk:travel/contact w/high risk person: No Has patient experienced Coronavirus symptoms: No Infectious screening In the last 2 months have you had wt loss of >10#?: NO Have you had fever, night sweats or hemotysis?: No Have you traveled outside the country in the last 6 months?: No Isolation: Standard ROS Review of Systems Respiratoy: Short of Breath Musculoskeletal: Other (bilat lower ext edema) All Other Systems: Reviewed and Negative PE Vital Signs Vitals: Vital Signs Temperature 98.2 F Pulse Rate 97 Pulse Rate 99 Pulse Rate 108 Pulse Rate 109 Pulse Rate 111 Pulse Rate 109 Pulse Rate 110 Pulse Rate 118 Pulse Rate 115 Respiratory Rate 15 Respiratory Rate 19 Respiratory Rate 23 Respiratory Rate 31 Respiratory Rate 29 Respiratory Rate 25 Respiratory Rate 18 Blood Pressure 108/58 Blood Pressure 131/71 Blood Pressure 103/59 Blood Pressure 114/73 O2 Sat by Pulse Oximetry 92 O2 Sat by Pulse Oximetry 95 O2 Sat by Pulse Oximetry 95 O2 Sat by Pulse Oximetry 93 O2 Sat by Pulse Oximetry 95 O2 Sat by Pulse Oximetry 92 O2 Sat by Pulse Oximetry 93 O2 Sat by Pulse Oximetry 90 General Limitations: No Limitations General Appearance: Alert and In No Apparent Distress Head Head Exam: Normal Inspection Eyes Eye exam: Normal Appearance ENT ENT Exam: Normal Exam Neck Neck Exam: Normal Inspection Chest Chest Inspection: Normal Inspection Respiratory Respiratory Exam: Normal Lung Sounds Bilat Cardiovascular Cardiovascular Exam: Tachycardia, Irregular Rhythm and Other (afib with RVR, rate ~115 on exam) Abdominal Exam Abdominal Exam: Normal Inspection, Normal Bowel Sounds and Soft Extremities Extremities Exam: Edema (3+ pitting edema in bilat lower ext) Back Back Exam: Normal Inspection Neurological Neurological Exam: Alert, Oriented X3 and CN II-XII Intact Psychiatric Psychiatric Exam: Normal Affect and Normal Mood Skin Skin Exam: Warm, Dry, Intact and Normal Color ROR Labs Reviewed Laboratory Results Reviewed?: Yes 09/23/24 13:35 09/23/24 13:35 Laboratory: WBC 4.4 X10^3/uL (3.6-10.0) 09/23/24 13:35 RBC 4.55 X10^6/uL (4.7-6.0) L 09/23/24 13:35 Hgb 13.0 g/dL (13.5-18.0) L 09/23/24 13:35 Hct 40.1 % (42.0-54.0) L 09/23/24 13:35 MCV 88.0 fL (80.0-100.0) 09/23/24 13:35 MCH 28.5 pg (27.0-34.0) 09/23/24 13:35 MCHC 32.4 g/dL (33.0-35.0) L 09/23/24 13:35 RDW 17.2 % (11.6-16.5) H 09/23/24 13:35 Plt Count 125 X10^3/uL (150.0-450.0) L 09/23/24 13:35 MPV 8.3 fL (7.4-11.0) 09/23/24 13:35 Neut % (Auto) 66.1 % (42.0-75.0) 09/23/24 13:35 Lymph % (Auto) 19.1 % (21.0-51.0) L 09/23/24 13:35 [place] % (Auto) 9.9 % (0.0-13.0) 09/23/24 13:35 Eos % (Auto) 2.7 % (0.9-2.9) 09/23/24 13:35 Baso % (Auto) 2.2 % (0.2-1.0) H 09/23/24 13:35 Neut # (Auto) 2.9 x10^3/uL (2.2-4.8) 09/23/24 13:35 Lymph # (Auto) 0.8 X10^3/uL (1.3-2.9) L 09/23/24 13:35 [place] # (Auto) 0.4 x10^3/uL (0.3-0.8) 09/23/24 13:35 Eos # (Auto) 0.1 x10^3/uL (0.0-0.2) 09/23/24 13:35 Baso # (Auto) 0.1 X10^3/uL (0.0-0.1) 09/23/24 13:35 Absolute Nucleated RBC 0.1 /100WBC 09/23/24 13:35 PT 42.4 SECONDS (11.8-14.3) 09/23/24 13:35 INR Target Range - 09/23/24 13:35 INR 4.70 (0.8-1.3) H 09/23/24 13:35 APTT 42.2 SECONDS (22.9-36.5) H 09/23/24 13:35 PTT Comment - 09/23/24 13:35 Sodium 141 mmol/L (136-145) 09/23/24 13:35 Corrected Sodium 143 mmol/L (136-145) 09/23/24 13:35 Potassium 4.1 mmol/L (3.5-5.1) 09/23/24 13:35 Chloride 103 mmol/L (98-107) 09/23/24 13:35 Carbon Dioxide 32.7 mmol/L (21-32) H 09/23/24 13:35 BUN 16 mg/dL (7-18) 09/23/24 13:35 Creatinine 0.79 mg/dL (0.70-1.30) 09/23/24 13:35 Est GFR (MDRD) Af Amer > 60 (>60) 09/23/24 13:35 Est GFR (MDRD) Non-Af > 60 (>60) 09/23/24 13:35 Glucose 174 mg/dL (65-99) H 09/23/24 13:35 Calcium 9.0 mg/dL (8.5-10.1) 09/23/24 13:35 Corrected Calcium 9.6 mg/dL (8.5-10.1) 09/23/24 13:35 Magnesium 2.1 mg/dL (2.0-2.9) 09/23/24 13:35 Total Bilirubin 1.00 mg/dL (0.2-1.0) 09/23/24 13:35 AST 30 Units/L (15-37) 09/23/24 13:35 ALT 23 Units/L (12-78) 09/23/24 13:35 Alkaline Phosphatase 76 Units/L (46-116) 09/23/24 13:35 Creatine Kinase 129 Units/L (39-308) 09/23/24 13:35 Troponin I High Sens 57.0 ng/L (4.0-60.0) 09/23/24 13:35 B-Natriuretic Peptide 189 pg/mL (0-79) H 09/23/24 13:35 Total Protein 7.2 g/dL (6.4-8.2) 09/23/24 13:35 Albumin 3.3 g/dL (3.4-5.0) L 09/23/24 13:35 Globulin 3.9 g/dL (2.5-4.5) 09/23/24 13:35 Albumin/Globulin Ratio 0.8 Ratio (1.1-2.1) L 09/23/24 13:35 Opioid Opioid Risk Tool Age (Wilian box if 16-45): No History of Preadolescent Sexual Abuse: No Total: 0 Total Score Risk Category: Low Risk Copyright: Sg CABRAL predicting aberrant behaviors Discharge Plan Diagnosis Discharge Problem: New onset a-fib, Congestive heart failure, Atrial fibrillation with RVR Discharge Plan Patient Disposition: ADMITTED INPATIENT Condition: Stable Orders to Discharge Patient Discharge Orders: Transfer (Routine); Ordered 09/23/24 Ordered By: Jerad Mcclellan ADDITIONAL NOTES Additional Notes Additional Notes: Pt admitted to Dr Stiles @ [id number]
[2024-09-23] MEDS: CARDIZEM INJ 50 MG VIAL IVP ONE (14:30)
--- NOTE | 2024-09-23 16:12 | EKG ---
Test Reason : new-onset afib Blood Pressure : */* mmHG Vent. Rate : 85 BPM Atrial Rate : * BPM P-R Int : * ms QRS Dur : 168 ms QT Int : 440 ms P-R-T Axes : * 79 184 degrees QTc Int : 523 ms Atrial fibrillation Left bundle branch block Abnormal ECG When compared with ECG of 23-SEP-2024 13:35, No significant change was found Confirmed by Bill Hope MD ([id number]) on 09/24/2024 7:18:51 AM Referred By: Confirmed By: Bill Hope MD
[2024-09-23] MEDS: LASIX IVP SCH (16:13)
[2024-09-23] MEDS: XOPENEX 1.25 MG/3 ML NEBULE NEB SCH (20:01)
[2024-09-23] MEDS: SNACK - Diabetic Appropriate PO SCH (20:12)
[2024-09-23] MEDS: NEURONTIN CAP 300 MG PO SCH (20:51)
[2024-09-23] MEDS: NORCO 7.5/325 MG TAB PO SCH (20:51)
[2024-09-23] MEDS: REQUIP PO SCH (20:51)
[2024-09-23] MEDS: CRESTOR TAB 10 MG PO SCH (20:51)
[2024-09-23] MEDS: COREG TAB 3.125 MG PO SCH (20:51)
[2024-09-23] MEDS: LANTUS SC SCH (20:52)
[2024-09-23] MEDS: NovoLIN R (or HumuLIN R) SUBCUT PRN (20:52)
[2024-09-23] MEDS ORDERED: COUMADIN PO SCH (21:00)
[2024-09-24 06:04] LABS: BASOPHILS # (AUTO) 0.1 X10^3/uL (0.0-0.1); WHITE BLOOD COUNT 3.8 X10^3/uL (3.6-10.0)
[2024-09-24 06:10] LABS: BASOPHILS % (AUTO) 2.5 % (0.2-1.0); EOSINOPHILS # (AUTO) 0.2 x10^3/uL (0.0-0.2); EOSINOPHILS % (AUTO) 4.6 % (0.9-2.9); HEMATOCRIT 38.3 % (42.0-54.0); HEMOGLOBIN 12.6 g/dL (13.5-18.0); LYMPHOCYTES # (AUTO) 0.5 X10^3/uL (1.3-2.9); LYMPHOCYTES % (AUTO) 12.4 % (21.0-51.0); MEAN CORPUSCULAR HEMOGLOBIN 28.6 pg (27.0-34.0); MEAN CORPUSCULAR VOLUME 86.6 fL (80.0-100.0); MEAN PLATELET VOLUME 9.1 fL (7.4-11.0); MONOCYTES # (AUTO) 0.5 x10^3/uL (0.3-0.8); MONOCYTES % (AUTO) 13.7 % (0.0-13.0); NEUTROPHILS # (AUTO) 2.6 x10^3/uL (2.2-4.8); NEUTROPHILS % (AUTO) 66.8 % (42.0-75.0); PLATELET COUNT 125 X10^3/uL (150.0-450.0); RED BLOOD COUNT 4.42 X10^6/uL (4.7-6.0)
[2024-09-24 06:30] LABS: INR 4.85 (0.8-1.3)
[2024-09-24 06:34] LABS: ALANINE AMINOTRANSFERASE 21 Units/L (12-78); ALBUMIN 3.1 g/dL (3.4-5.0); ALKALINE PHOSPHATASE 74 Units/L (46-116); ASPARTATE AMINO TRANSFERASE 28 Units/L (15-37); BLOOD UREA NITROGEN 18 mg/dL (7-18); CALCIUM 8.8 mg/dL (8.5-10.1); CARBON DIOXIDE 33.7 mmol/L (21-32); CHLORIDE 102 mmol/L (98-107); CHOL/HDL RATIO 1.9 (0.0-5.0); CHOLESTEROL 89 mg/dL (0-200); COR CA(FOR HYPOALB) 9.5 mg/dL (8.5-10.1); COR NA(FOR HYPERGLY) 142 mmol/L (136-145); CREATININE 0.73 mg/dL (0.70-1.30); GLUCOSE 117 mg/dL (65-99); HDL CHOLESTEROL 46 mg/dL (40-60); MAGNESIUM 1.9 mg/dL (2.0-2.9); POTASSIUM 3.2 mmol/L (3.5-5.1); SODIUM 142 mmol/L (136-145); TRIGLYCERIDES 71 mg/dL (0-150); eGFR NON BLACK RACES > 60 (>60)
--- NOTE | 2024-09-24 07:52 | RAD ---
EXAMINATION:CHEST, 1 VIEWHISTORY:EVAL PULM EDEMA ; HTN, DM SX: CABG/VALVE SURG, TONSILLECTOMY .COMPARISON STUDY:Chest x-ray 09/23/2024TECHNIQUE:Single portable AP view chestFINDINGS:Lungs are expanded. Moderate cardiac silhouette enlargement. Postsurgical changes mediastinum. Bones are unchanged.IMPRESSION:Moderate cardiac silhouette enlargement.THIS IS AN ELECTRONICALLY VERIFIED FINAL REPORT09/24/2024 7:49 AM - Electronically signed by Ana Sauer MD
[2024-09-24] MEDS: KLOR-CON 10 MEQ TAB PO SCH ×2 (08:43→10:35)
[2024-09-24] MEDS: ALDACTONE TAB 25 MG PO SCH (08:44)
[2024-09-24] MEDS: PROzac PO SCH (08:44)
[2024-09-24] MEDS: SINGULAIR TAB 10 MG PO SCH (08:44)
[2024-09-24] MEDS: FARXIGA PO SCH (08:44)
[2024-09-24] MEDS ORDERED: ZOFRAN INJ 4 MG VIAL ONE (10:22)
[2024-09-24] MEDS: COREG TAB 3.125 MG PO NR (10:26)
[2024-09-24] MEDS: ZOFRAN INJ 4 MG VIAL IVP PRN (10:28)
--- NOTE | 2024-09-24 10:32 | DR.H&P ---
H&P History & Physical for Day of: H&P Date: 09/24/24 Chief Complaint Chief Complaint: SOB, leg swelling History of Present Illness History of Present Illness: Mr Ledbetter is a 54y/o male with a PMH of Aortic/Mitral valve replacement, DM, CABG, HTN, HLD and chronic leg wounds presented with worsening LE swelling and dyspnea. He was seen at PCP office last week and started on lasix. He continued to have worsening lower ext edema and SOB so he came to the ER. Patient was noted to be in Afib RVR in the ER, denies prior hx of A fib. He was given IV diltiazem for rate control. Labs showed BNP 189, Trop 57. CXR showed heart failure. EKG showed afib with RVR. He was started on IV lasix and admitted for further management. He is feeling better this morning. HR has been in the 90s-100s. He takes coumadin, INR 4.85. His dose from yesterday was held due to elevated INR. He also has chronic diabetic LE wounds, culture pending. Labs/imaging reviewed: -WBC 3.8 Hgb 12.6 Plt 125 K 3.2 Mag 1.9 INR 4.85 BNP 189 TSH nl -Trop 57, 53, 62, 59 -CXR: moderate cardiac enlargement -Wound Cx pending Plan: continue telemetry. Consult cardio. Echo pending. Increase coreg for better rate control. Continue IV lasix. Monitor I&Os. Replace electrolytes as per protocol. Resume home medications. Hold warfarin dose, check INR in the AM. Wound care as per nursing, follow wound Cx. Add Zofran prn. PT/OT as tolerated. Monitor AM labs/imaging. Time spent for clinical assessment, reviewing labs/imaging, physical exam, decision making and documentation greater than 45 mins. Past Medical History Past Medical History: Arthritis, Diabetes and Hypertension Past Surgical History Surgical History: Tonsillectomy Family History Family Medical History: Diabetes Mellitus, Cancer and Hypertension Social History Does patient currently use any type of tobacco product: No Have you used tobacco products in the last 12 months: No Type of Tobacco Use: None Does any household member use tobacco: No Alcohol Use: None Drug Use: None Medications Home Medications: Home Medications Medication Instructions Recorded Confirmed Type gabapentin 300 mg capsule 300 mg PO BID 11/10/21 09/23/24 History montelukast 10 mg tablet 10 mg PO DAILY 11/10/21 09/23/24 History ropinirole 1 mg tablet 1 mg PO QHS 11/10/21 09/23/24 History rosuvastatin 10 mg tablet 10 mg PO QHS 11/10/21 09/23/24 History spironolactone 25 mg tablet 25 mg PO DAILY 11/10/21 09/23/24 History warfarin 10 mg tablet 10 mg PO QHS 11/10/21 09/23/24 History dapagliflozin propanediol 10 mg 10 mg PO QDAY 12/18/23 09/23/24 History tablet (Farxiga) fluoxetine 20 mg capsule 20 mg PO QDAY 04/17/24 09/23/24 History insulin glargine 100 unit/mL (3 35 unit subcut HS 04/17/24 09/23/24 History mL) subcutaneous pen (Lantus Solostar U-100 Insulin) furosemide 40 mg tablet (Lasix) 40 mg PO BID PRN 09/23/24 09/23/24 History hydrocodone 7.5 mg-acetaminophen 1 tab PO BID PRN 09/23/24 09/23/24 History 325 mg tablet semaglutide 14 mg tablet (Rybelsus) 14 mg PO QAM 09/23/24 09/23/24 History Allergies Allergies Allergy/AdvReac Type Severity Reaction Status Date / Time No Known Drug Allergies Allergy Verified 09/23/24 14:43 Labs 09/24/24 05:16 09/24/24 05:16 Labs: 09/23/24 16:28 Leg - Right Wound Gram Stain - Final 09/23/24 16:28 Leg - Left Wound Gram Stain - Final Laboratory WBC 3.8 X10^3/uL (3.6-10.0) 09/24/24 05:16 RBC 4.42 X10^6/uL (4.7-6.0) L 09/24/24 05:16 Hgb 12.6 g/dL (13.5-18.0) L 09/24/24 05:16 Hct 38.3 % (42.0-54.0) L 09/24/24 05:16 MCV 86.6 fL (80.0-100.0) 09/24/24 05:16 MCH 28.6 pg (27.0-34.0) 09/24/24 05:16 MCHC 33.0 g/dL (33.0-35.0) 09/24/24 05:16 RDW 17.0 % (11.6-16.5) H 09/24/24 05:16 Plt Count 125 X10^3/uL (150.0-450.0) L 09/24/24 05:16 MPV 9.1 fL (7.4-11.0) 09/24/24 05:16 Neut % (Auto) 66.8 % (42.0-75.0) 09/24/24 05:16 Lymph % (Auto) 12.4 % (21.0-51.0) L 09/24/24 05:16 [place] % (Auto) 13.7 % (0.0-13.0) H 09/24/24 05:16 Eos % (Auto) 4.6 % (0.9-2.9) H 09/24/24 05:16 Baso % (Auto) 2.5 % (0.2-1.0) H 09/24/24 05:16 Neut # (Auto) 2.6 x10^3/uL (2.2-4.8) 09/24/24 05:16 Lymph # (Auto) 0.5 X10^3/uL (1.3-2.9) L 09/24/24 05:16 [place] # (Auto) 0.5 x10^3/uL (0.3-0.8) 09/24/24 05:16 Eos # (Auto) 0.2 x10^3/uL (0.0-0.2) 09/24/24 05:16 Baso # (Auto) 0.1 X10^3/uL (0.0-0.1) 09/24/24 05:16 Absolute Nucleated RBC 0.1 /100WBC 09/24/24 05:16 PT 43.4 SECONDS (11.8-14.3) 09/24/24 05:16 INR Target Range - 09/24/24 05:16 INR 4.85 (0.8-1.3) H 09/24/24 05:16 APTT 43.6 SECONDS (22.9-36.5) H 09/24/24 05:16 PTT Comment - 09/24/24 05:16 Sodium 142 mmol/L (136-145) 09/24/24 05:16 Corrected Sodium 142 mmol/L (136-145) 09/24/24 05:16 Potassium 3.2 mmol/L (3.5-5.1) L 09/24/24 05:16 Chloride 102 mmol/L (98-107) 09/24/24 05:16 Carbon Dioxide 33.7 mmol/L (21-32) H 09/24/24 05:16 BUN 18 mg/dL (7-18) 09/24/24 05:16 Creatinine 0.73 mg/dL (0.70-1.30) 09/24/24 05:16 Est GFR (MDRD) Af Amer > 60 (>60) 09/24/24 05:16 Est GFR (MDRD) Non-Af > 60 (>60) 09/24/24 05:16 Glucose 117 mg/dL (65-99) H 09/24/24 05:16 POC Glucose (mg/dL) 107 mg/dL (65-99) H 09/24/24 05:58 Calcium 8.8 mg/dL (8.5-10.1) 09/24/24 05:16 Corrected Calcium 9.5 mg/dL (8.5-10.1) 09/24/24 05:16 Magnesium 1.9 mg/dL (2.0-2.9) L 09/24/24 05:16 Total Bilirubin 1.00 mg/dL (0.2-1.0) 09/24/24 05:16 AST 28 Units/L (15-37) 09/24/24 05:16 ALT 21 Units/L (12-78) 09/24/24 05:16 Alkaline Phosphatase 74 Units/L (46-116) 09/24/24 05:16 Creatine Kinase 134 Units/L (39-308) 09/23/24 16:27 Troponin I High Sens 59.4 ng/L (4.0-60.0) 09/24/24 05:16 B-Natriuretic Peptide 189 pg/mL (0-79) H 09/23/24 13:35 Total Protein 7.0 g/dL (6.4-8.2) 09/24/24 05:16 Albumin 3.1 g/dL (3.4-5.0) L 09/24/24 05:16 Globulin 3.9 g/dL (2.5-4.5) 09/24/24 05:16 Albumin/Globulin Ratio 0.8 Ratio (1.1-2.1) L 09/24/24 05:16 Triglycerides 71 mg/dL (0-150) 09/24/24 05:16 Cholesterol 89 mg/dL (0-200) 09/24/24 05:16 LDL Cholesterol, Calc 29 mg/dL (0-100) 09/24/24 05:16 HDL Cholesterol 46 mg/dL (40-60) 09/24/24 05:16 Cholesterol/HDL Ratio 1.9 (0.0-5.0) 09/24/24 05:16 TSH 3rd Generation 1.112 uIU/mL (0.358-3.74) 09/23/24 16:27 Review of Systems Constitutional: Weakness Eyes: No Symptoms Reported ENT: No Symptoms Reported Respiratory: Shortness of Breath and SOB with Excertion Cardiovascular: Edema Gastrointestinal: Nausea Genitourinary: No Symptoms Reported Musculoskeletal: Leg Pain Skin: Wound Neurological: No Symptoms Reported Physical Exam Vital Signs: Vital Signs Temperature 98.6 F Pulse Rate [Left] 96 Respiratory Rate 18 Respiratory Rate 19 Blood Pressure [Left Arm] 123/59 O2 Sat by Pulse Oximetry 95 Oriented: Normal Eyes: Normal Ear: Normal Nose: Normal Respiratory: Diminished Throughout Cardiovascular: Tachycardia and Irregular Auscultation: Bowel Sounds: Normal Palpation: Normal Tenderness: Normal Skin: Wound (b/l legs ) Musculoskeletal: Leg Psychiatric: Normal Affect: Normal Speech Pattern: Clear and Appropriate Assessment/Plan (1) New onset a-fib: Status: Acute (2) Atrial fibrillation with RVR: Status: Acute (3) Congestive heart failure: Qualifiers: Heart failure chronicity: unspecified Heart failure type: unspecified Qualified Code(s): I50.9 - Heart failure, unspecified Status: Acute (4) Infected wound: Status: Chronic (5) 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 transplanted heart: [place] heart Qualified Code(s): I25.810 - Atherosclerosis of coronary artery bypass graft(s) without angina pectoris Status: Chronic (8) Heart valve replaced: Status: Chronic Review H&P Reviewed: Yes Patient was examined?: Yes
[2024-09-24] MEDS: KLOR-CON ONE (10:35)
[2024-09-24] MEDS: KLOR-CON 10 MEQ TAB PO ONE (11:11)
[2024-09-24] MEDS ORDERED: NS 100 ML IV 100 ML ONE (14:06)
[2024-09-24] MEDS ORDERED: CARDIZEM INJ 125 MG VIAL ONE (14:06)
[2024-09-24] MEDS: XOPENEX 1.25 MG/3 ML NEBULE NEB ONE (14:29)
--- NOTE | 2024-09-24 14:32 | DR.CONSULT ---
CONSULT Consultation for Day of: Date: 09/24/24 Chief Complaint Chief Complaint: sob/edema Allergies Allergies Allergy/AdvReac Type Severity Reaction Status Date / Time No Known Drug Allergies Allergy Verified 09/23/24 14:43 History of Present Illness History of Present Illness: states 2 v surgery /no cad 7 years ago-[facility]- few months of sob/edema- got bad lately- unaware of heart going fast- up 30 lbs fluid- echo 2020: normal lv now 20% EF- also in afib, nsr 05/25 Past Medical History Past Medical History: Arthritis, Diabetes and Hypertension Past Surgical History Surgical History: Tonsillectomy Family History Family Medical History: Diabetes Mellitus, Cancer and Hypertension Social History Does patient currently use any type of tobacco product: No Have you used tobacco products in the last 12 months: No Type of Tobacco Use: None Does any household member use tobacco: No Alcohol Use: None Drug Use: None Medications Home Medications: No Known Drug Allergies Allergy (Verified 09/23/24 14:43) CONTINUE taking the following medications furosemide 40 mg tablet (Lasix) 40 mg PO BID PRN 09/23/24 [History] hydrocodone 7.5 mg-acetaminophen 325 mg tablet 1 tab PO BID PRN 09/23/24 [History] semaglutide 14 mg tablet (Rybelsus) 14 mg PO QAM 09/23/24 [History] Physical Exam Vital Signs: Vital Signs Temperature 98.6 F Pulse Rate [Left] 101 Respiratory Rate 20 Respiratory Rate 18 Respiratory Rate 19 Blood Pressure [Left Arm] 141/73 O2 Sat by Pulse Oximetry 95 edematous sob elevated jvd crackles tachy/irreg 2-3 plus edema labs: wbc 3.8 hct 38 plt 125 k 3.2 cr 0.73 bnp 189 trops x 4 around 60 ekg: afib lbbb cxr: big heart /chf alb 3.1 Plan (1) Atrial fibrillation with RVR: Status: Acute Plan: rate control w bb/iv cardizem and diuresis (2) Congestive heart failure: Status: Acute Qualifiers: Heart failure chronicity: unspecified Heart failure type: unspecified Qualified Code(s): I50.9 - Heart failure, unspecified Narrative Support Text: ef 20% was normal 2020- could be cad/CM of tachyother Plan: rate control/diuresis- refer to tertiary care for ep/cath (3) Infected wound: Status: Chronic (4) 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
[2024-09-24] MEDS: CARDIZEM INJ 50 MG VIAL ONE (14:41)
[2024-09-24] MEDS: CARDIZEM INJ 125 MG VIAL 125 MG in NS 100 ML IV 100 ML IV PRN (14:43)
[2024-09-24] MEDS: CARDIZEM INJ 50 MG VIAL IVP ONE (14:56)
[2024-09-24] MEDS ORDERED: MAG-OX TAB ONE (15:42)
[2024-09-24] MEDS: MAG-OX TAB PO SCH (16:08)
[2024-09-24] MEDS ORDERED: FIORICET TAB ONE (18:18)
[2024-09-24] MEDS: FIORICET TAB PO PRN (18:22)
[2024-09-24 20:10] VITALS: TEMP 98.9; O2SAT 97
[2024-09-24] MEDS ORDERED: COREG TAB 6.25 MG PO SCH (21:00)
[2024-09-24 21:10] VITALS: BP 102/58; PULSE 90; RESP 25
== END 2024-09-24 21:05 | disposition short-term general hospital (02) | DRG 309 ==
LOC: MED/SURG 12:03 → ER 12:03 → MED/SURG 15:27 → ICU 09-24 14:56
PROVIDERS: ADMIT Internal Medicine; ATTEND Internal Medicine
DX: D64.89 Other specified anemias; I48.91 Unspecified atrial fibrillation; Z79.01 Long term (current) use of anticoagulants; R94.31 Abnormal electrocardiogram [ECG] [EKG]; E11.622 Type 2 diabetes mellitus with other skin ulcer; Z16.19 Resistance to other specified beta lactam antibiotics; R79.1 Abnormal coagulation profile; Z16.11 Resistance to penicillins; L97.828 Non-pressure chronic ulcer of other part of left lower leg with other specified severity; B96.89 Other specified bacterial agents as the cause of diseases classified elsewhere; R79.89 Other specified abnormal findings of blood chemistry; I44.7 Left bundle-branch block, unspecified; Z95.2 Presence of prosthetic heart valve; I50.9 Heart failure, unspecified; R00.0 Tachycardia, unspecified; I25.810 Atherosclerosis of coronary artery bypass graft(s) without angina pectoris; I11.0 Hypertensive heart disease with heart failure; L97.818 Non-pressure chronic ulcer of other part of right lower leg with other specified severity